=== PATIENT | male | born 1950 | race Caucasian/White ===

== ENCOUNTER 2023-04-10 14:31 | Outpatient (AMB) | payer MEDICARE, SELFPAY ==
[2023-04-10 14:48] VITALS: BP 114/70; PULSE 91; BMI 32.7
--- NOTE | 2023-04-10 14:48 | HO.NEPHOV ---
HPI HPI Comments History of Present Illness Details I had the pleasure of seeing Royce in follow-up for his hypertension. He was due to move to [place] last year but was delayed due to his left knee problems. He had worker's compensation sorted out for it and is going to be operated soon by [facility]. He has not been much active due to left knee issues and he has gained some weight. His blood pressure has been at goal. He has been taking metoprolol 50 mg twice daily. He does not have any orthostatic symptoms consistently. He denied chest pain, shortness of breath, paroxysmal nocturnal dyspnea, orthopnea, pedal edema or urinary symptoms. He does not take nonsteroidal anti-inflammatory medications on a regular basis. He tries to maintain himself well hydrated. He has not had any new medication changes recently. He was accompanied by his during this office visit who was physically present during the entire encounter. [facility] Medical History (Updated 04/11/23 @ 04:54 by Avtar Villafana MD) Spermatocele Varicocele Hydrocele Osteoarthritis Hypertension Surgical History (Updated 04/10/23 @ 14:56 by Lou Sims MA) S/P rotator cuff repair History of hernia repair History of arthroscopic knee surgery Family History (Updated 04/10/23 @ 14:58 by Lou Sims MA) Mother Diabetes Cancer Alzheimer disease Father Heart disease High cholesterol Brother Hx of CABG Social History (Updated 04/10/23 @ 14:57 by Lou Sims MA) Alcohol intake: never Patient Tobacco Use Status: Never used Tobacco Vital Signs 04/10/23 14:48 Height 5 ft 6 in Weight 202 lb 8 oz BMI 32.7 BP 114/70 Blood Pressure Location Lt brachial Position Sitting Pulse 91 Pulse Source Pulse Oximeter Physical Exam Vital Signs: Last Vital Signs Pulse 91 04/10/23 14:48 BP 114/70 04/10/23 14:48 BMI result Body Mass Index 32.7 Const General: comfortable and no acute distress Orientation/consciousness: patient oriented x3 HEENT Head: Yes normocephalic Mouth: Normal oral and palatal mucosa present Eyes EOM: EOMs intact bilaterally Neck Neck: Yes supple Resp Auscultation: clear to auscultation bilaterally Cardio Jugular venous distension: no JVD Rate: regular rate GI Palpation (GI): Soft to palpation Auscultation: normal bowel sounds General: Yes no CVA tenderness Back/Spine/Pelvis Back: no CVA tenderness Skin General skin exam: no rashes or lesions noted Neuro General: patient oriented x3 and moves all extremities Extrem General: Yes no pedal edema Assessment & Plan Assessment & Plan (1) Hypertension: Code(s): I10 - Essential (primary) hypertension Qualifiers: Hypertension type: primary hypertension Qualified Code(s): I10 - Essential (primary) hypertension Plan Royce has longstanding hypertension and is very well controlled on current medication regimen. He is compliant with his metoprolol 50 mg twice daily. He does not have any tachycardia, orthostatic symptoms. He denies taking nonsteroidal anti-inflammatory medications for his left knee issues. He tries to maintain a low-sodium diet. He has gained weight but is planning to lose after his left knee issues have been resolved. He tries to remain himself well hydrated. I did not make any medication changes today. All questions were answered. From a renal perspective, there is no reservation in him having his left knee operated. Follow-up blood work and urine studies ordered. Time spent during encounter, answering questions, retrieval of data & documentation 24 minutes. Orders: Orders Electrolytes 04/10/23 I10 - Essential (primary) hypertension Blood Urea Nitrogen 04/10/23 I10 - Essential (primary) hypertension Creatinine 04/10/23 I10 - Essential (primary) hypertension Calcium 04/10/23 I10 - Essential (primary) hypertension Medications: New metoprolol tartrate 50 mg PO BID 90 days 180 tabs 3RF Coding Level of Care Code Est Pt Level 3 (64931) Diagnoses Primary hypertension I10 Hypertension type: primary hypertension
== END 2023-04-10 15:50 | disposition home or self-care (01) ==
PROVIDERS: PCP Internal Medicine; Visit Provider Internal Medicine Nephrology
DX: I10 Essential (primary) hypertension (principal)
CPT/HCPCS: 99213

== ENCOUNTER → 2023-04-10 14:31 | Outpatient (BNVA) | payer MEDICARE, SELFPAY | PROVIDERS: PCP Internal Medicine; Visit Provider Internal Medicine Nephrology | DX: I10 Essential (primary) hypertension (principal) | CPT/HCPCS: 99212 ==

== ENCOUNTER 2023-10-09 14:43 | Outpatient (AMB) | payer MEDICARE, SELFPAY ==
[2023-10-09 15:13] VITALS: BP 110/84; PULSE 68; O2SAT 94; BMI 31.4
--- NOTE | 2023-10-09 15:13 | HO.NEPHOV ---
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 He was due to move to [place] last year but was delayed due to his left knee problems. He underwent left total knee replacement. He has been feeling tired and has occasional wheezing which his thinks could be due to metoprolol. His blood pressure has been at goal. He denied chest pain, shortness of breath, paroxysmal nocturnal dyspnea, orthopnea, pedal edema or urinary symptoms. He does not take nonsteroidal anti-inflammatory medications on a regular basis. He tries to maintain himself well hydrated. He has not had any new medication changes recently. He recently was diagnosed with renal stone. He sees Urology. He was accompanied by his during this office visit who was physically present during the entire encounter. [facility] Medical History (Updated 10/09/23 @ 15:38 by Avtar Villafana MD) Spermatocele Varicocele Hydrocele Osteoarthritis Hypertension Surgical History S/P rotator cuff repair History of hernia repair History of arthroscopic knee surgery Family History Mother Diabetes Cancer Alzheimer disease Father Heart disease High cholesterol Brother Hx of CABG Social History Alcohol intake: never Patient Tobacco Use Status: Never used Tobacco Physical Exam Vital Signs: Last Vital Signs Pulse 68 10/09/23 15:13 BP 110/84 10/09/23 15:13 Pulse Ox 94 10/09/23 15:13 Oxygen Delivery Method Room Air 10/09/23 15:13 BMI result Body Mass Index 31.4 Const General: comfortable and no acute distress Orientation/consciousness: patient oriented x3 HEENT Head: Yes normocephalic Mouth: Normal oral and palatal mucosa present Eyes EOM: EOMs intact bilaterally Neck Neck: Yes supple Resp Auscultation: clear to auscultation bilaterally Cardio Jugular venous distension: no JVD Rate: regular rate GI Palpation (GI): Soft to palpation Auscultation: normal bowel sounds General: Yes no CVA tenderness Back/Spine/Pelvis Back: no CVA tenderness Skin General skin exam: no rashes or lesions noted Neuro General: patient oriented x3 and moves all extremities Extrem General: Yes no pedal edema Results Reviewed Nephrology Results: No Data to Display Assessment & Plan Assessment & Plan (1) Hypertension: Code(s): I10 - Essential (primary) hypertension Category: Medical Qualifiers: Hypertension type: primary hypertension Qualified Code(s): I10 - Essential (primary) hypertension (2) Renal calculus: Code(s): N20.0 - Calculus of kidney Category: Medical Plan Royce has longstanding hypertension and is very well controlled on current medication regimen. He feels that he may be having wheezing and tiredness from metoprolol. He wants to change it and see whether his symptoms will go away. I D/Kavin metoprolol and sytarted on losartan 25 mg daily( side effects explained). ( was on metoprolol 50 mg twice daily). He does not have any tachycardia, orthostatic symptoms. He denies taking nonsteroidal anti-inflammatory medications for his left knee issues. He tries to maintain a low-sodium diet. He has gained weight but is planning to lose it. He tries to remain himself well hydrated. I did not make any medication changes today. I plan to do a 24 hour urine for stone screen later. All questions were answered. Follow-up blood work ordered. Orders: Orders Creatinine Today I10 - Essential (primary) hypertension, N20.0 - Calculus of kidney Blood Urea Nitrogen Today I10 - Essential (primary) hypertension, N20.0 - Calculus of kidney Electrolytes Today I10 - Essential (primary) hypertension, N20.0 - Calculus of kidney Medications: New losartan 25 mg PO DAILY 90 tabs 1RF Coding Level of Care Code Est Pt Level 4 (29160) Diagnoses Primary hypertension I10 Hypertension type: primary hypertension Renal calculus N20.0
== END 2023-10-09 15:48 | disposition home or self-care (01) ==
PROVIDERS: PCP Internal Medicine; Visit Provider Internal Medicine Nephrology
DX: I10 Essential (primary) hypertension (principal); N20.0 Calculus of kidney
CPT/HCPCS: 99214

== ENCOUNTER → 2023-10-09 14:43 | Outpatient (BNVA) | payer MEDICARE, SELFPAY | PROVIDERS: PCP Internal Medicine; Visit Provider Internal Medicine Nephrology | DX: I10 Essential (primary) hypertension (principal); N20.0 Calculus of kidney | CPT/HCPCS: 99212 ==

== ENCOUNTER 2024-01-08 13:35 | Outpatient (AMB) | payer MEDICARE, SELFPAY ==
[2024-01-08 13:39] VITALS: BP 120/82; PULSE 115; O2SAT 94; BMI 31.7
--- NOTE | 2024-01-08 13:39 | HO.NEPHOV ---
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 He was due to move to [place] last year but was delayed due to his left knee problems. He underwent left total knee replacement. He has been feeling tired and has occasional wheezing which his thinks could be due to metoprolol. His blood pressure has been at goal. He denied chest pain, shortness of breath, paroxysmal nocturnal dyspnea, orthopnea, pedal edema or urinary symptoms. He does not take nonsteroidal anti-inflammatory medications on a regular basis. He tries to maintain himself well hydrated. He has not had any new medication changes recently. He recently was diagnosed with renal stone. He sees Urology. He was accompanied by his during this office visit who was physically present during the entire encounter. He has been having high HR after changing metoprolol but his wheezing is gone. [facility] Medical History (Updated 10/09/23 @ 15:38 by Avtar Villafana MD) Spermatocele Varicocele Hydrocele Osteoarthritis Hypertension Surgical History S/P rotator cuff repair History of hernia repair History of arthroscopic knee surgery Family History Mother Diabetes Cancer Alzheimer disease Father Heart disease High cholesterol Brother Hx of CABG Social History Alcohol intake: never Patient Tobacco Use Status: Never used Tobacco Review of Systems Const All systems reviewed & are unremarkable except as noted in HPI and below Physical Exam Vital Signs: Last Vital Signs Pulse 115 H 01/08/24 13:39 BP 120/82 01/08/24 13:39 Pulse Ox 94 01/08/24 13:39 Oxygen Delivery Method Room Air 08/15/24 13:39 BMI result Body Mass Index 31.7 Const General: comfortable and no acute distress Orientation/consciousness: patient oriented x3 HEENT Head: Yes normocephalic Mouth: Normal oral and palatal mucosa present Eyes EOM: EOMs intact bilaterally Neck Neck: Yes supple Resp Auscultation: clear to auscultation bilaterally Cardio Jugular venous distension: no JVD Rate: regular rate GI Palpation (GI): Soft to palpation Auscultation: normal bowel sounds General: Yes no CVA tenderness Back/Spine/Pelvis Back: no CVA tenderness Skin General skin exam: no rashes or lesions noted Neuro General: patient oriented x3 and moves all extremities Extrem General: Yes no pedal edema Results Reviewed Nephrology Results: No Data to Display Assessment & Plan Assessment & Plan (1) Hypertension: Code(s): I10 - Essential (primary) hypertension Category: Medical Qualifiers: Hypertension type: primary hypertension Qualified Code(s): I10 - Essential (primary) hypertension (2) Renal calculus: Code(s): N20.0 - Calculus of kidney Category: Medical Plan Royce has longstanding hypertension and is very well controlled on current medication regimen but his HR is high after D/Cing metoprolol. (He felt that he may be having wheezing and tiredness from metoprolol. He wanted to change it and see whether his symptoms will go away. I D/Kavin metoprolol and started on losartan 25 mg daily at the last visit( side effects explained). ( was on metoprolol 50 mg twice daily) His wheezing is gone now. He denies taking nonsteroidal anti-inflammatory medications for his left knee issues. He tries to maintain a low-sodium diet. He is trying to lose weight. I asked him to hold losartan and started him on Diltiazem 240 mg daily. He tries to remain himself well hydrated. I did not make any other medication changes today. I plan to do a 24 hour urine for stone screen later. All questions were answered. Follow-up blood work ordered. Orders: Orders Creatinine Today I10 - Essential (primary) hypertension, N20.0 - Calculus of kidney Electrolytes Today I10 - Essential (primary) hypertension, N20.0 - Calculus of kidney Blood Urea Nitrogen Today I10 - Essential (primary) hypertension, N20.0 - Calculus of kidney Medications: New diltiazem HCl ER 240 mg PO DAILY 30 caps 2RF Coding Level of Care Code Est Pt Level 4 (19568) Diagnoses Primary hypertension I10 Hypertension type: primary hypertension Renal calculus N20.0
== END 2024-01-08 14:15 | disposition home or self-care (01) ==
PROVIDERS: PCP Internal Medicine; Visit Provider Internal Medicine Nephrology
DX: I10 Essential (primary) hypertension (principal); N20.0 Calculus of kidney
CPT/HCPCS: 99214

== ENCOUNTER → 2024-01-08 13:35 | Outpatient (BNVA) | payer MEDICARE, SELFPAY | PROVIDERS: PCP Internal Medicine; Visit Provider Internal Medicine Nephrology ==

== ENCOUNTER 2024-01-08 14:04 | Outpatient (REF) | payer MEDICARE, SELFPAY ==
[2024-01-08 17:52] LABS: Anion Gap 12 (12-20); Blood Urea Nitrogen 18 mg/dL (9-16); Carbon Dioxide 25 mmol/L (22-29); Chloride 108 mmol/L (96-108); Estimated Glomerular Filt Rate > 60; Potassium 4.1 mmol/L (3.3-5.1); Sodium 141 mmol/L (135-145)
== END 2024-01-08 14:05 | disposition home or self-care (01) ==
LOC: HO.HKASLDS 14:04
PROVIDERS: Visit Provider Internal Medicine Nephrology
DX: N20.0 Calculus of kidney (principal); I10 Essential (primary) hypertension
CPT/HCPCS: 36415; 80051; 82565; 84520; 99212

== ENCOUNTER 2024-02-24 14:32 | Outpatient (AMB) | payer MEDICARE, SELFPAY ==
--- NOTE | 2024-02-24 14:42 | HO.NEPHOV_ITS ---
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 He underwent left total knee replacement. His blood pressure has been at goal. He denied chest pain, shortness of breath, paroxysmal nocturnal dyspnea, orthopnea, pedal edema or urinary symptoms but has been having intermittent tachycardia. He does not take nonsteroidal anti-inflammatory medications on a regular basis. He tries to maintain himself well hydrated. He recently was diagnosed with renal stone. He sees Urology. He was accompanied by his during this office visit who was physically present during the entire encounter. [facility] Medical History (Updated 10/09/23 @ 15:38 by Avtar Villafana MD) Spermatocele Varicocele Hydrocele Osteoarthritis Hypertension Surgical History S/P rotator cuff repair History of hernia repair History of arthroscopic knee surgery Family History Mother Diabetes Cancer Alzheimer disease Father Heart disease High cholesterol Brother Hx of CABG Social History Alcohol intake: never Patient Tobacco Use Status: Never used Tobacco Review of Systems Const All systems reviewed & are unremarkable except as noted in HPI and below Physical Exam Vital Signs: Last Vital Signs Pulse 105 H 02/24/24 14:44 BP 122/86 02/24/24 14:44 Pulse Ox 95 02/24/24 14:44 Oxygen Delivery Method Room Air 02/24/24 14:44 BMI result Body Mass Index 32.1 Const General: comfortable and no acute distress Orientation/consciousness: patient oriented x3 HEENT Head: Yes normocephalic Mouth: Normal oral and palatal mucosa present Eyes EOM: EOMs intact bilaterally Neck Neck: Yes supple Resp Auscultation: clear to auscultation bilaterally Cardio Jugular venous distension: no JVD Rate: regular rate GI Palpation (GI): Soft to palpation Auscultation: normal bowel sounds General: Yes no CVA tenderness Back/Spine/Pelvis Back: no CVA tenderness Skin General skin exam: no rashes or lesions noted Neuro General: patient oriented x3 and moves all extremities Extrem General: Yes no pedal edema Results Reviewed Nephrology Results: Sodium 141 mmol/L (135-145) 01/08/24 Potassium 4.1 mmol/L (3.3-5.1) 01/08/24 Chloride 108 mmol/L (96-108) 01/08/24 Carbon Dioxide 25 mmol/L (22-29) 01/08/24 BUN 18 mg/dL (9-16) H 01/08/24 Creatinine 0.93 mg/dL (0.5-1.4) 01/08/24 Assessment & Plan Assessment & Plan (1) Hypertension: Code(s): I10 - Essential (primary) hypertension Category: Medical Qualifiers: Hypertension type: primary hypertension Qualified Code(s): I10 - Essential (primary) hypertension (2) Renal calculus: Code(s): N20.0 - Calculus of kidney Category: Medical Plan Royce has longstanding hypertension and is very well controlled on current medication regimen but his HR is high after D/Cing metoprolol. (He felt that he may be having wheezing and tiredness from metoprolol). He is on losartan 25 mg daily along with Diltiazem. ( was on metoprolol 50 mg twice daily) His wheezing is gone now. He denies taking nonsteroidal anti-inflammatory medications for his left knee issues. He tries to maintain a low-sodium diet. He is trying to lose weight. We may have to hold losartan and increase Diltiazem to 360 mg daily, after a monitor. He tries to remain himself well hydrated. I did not make any other medication changes today. I plan to do a 24 hour urine for stone screen later. All questions were answered. Follow-up blood work ordered Coding Level of Care Code Est Pt Level 4 (47012) Diagnoses Primary hypertension I10 Hypertension type: primary hypertension Renal calculus N20.0
[2024-02-24 14:44] VITALS: BP 122/86; PULSE 105; O2SAT 95; BMI 32.1
== END 2024-02-24 15:09 | disposition home or self-care (01) ==
PROVIDERS: PCP Internal Medicine; Visit Provider Internal Medicine Nephrology
DX: I10 Essential (primary) hypertension (principal); N20.0 Calculus of kidney
CPT/HCPCS: 99214

== ENCOUNTER → 2024-02-24 14:32 | Outpatient (BNVA) | payer MEDICARE, SELFPAY | PROVIDERS: PCP Internal Medicine; Visit Provider Internal Medicine Nephrology | DX: I10 Essential (primary) hypertension (principal); N20.0 Calculus of kidney | CPT/HCPCS: 99212 ==

== ENCOUNTER 2024-08-24 13:55 | Outpatient (AMB) | payer MEDICARE, SELFPAY ==
--- NOTE | 2024-08-24 14:01 | HO.NEPHOV_ITS ---
Vital Signs 08/24/24 14:02 Height 5 ft 6 in Weight 199 lb BMI 32.1 BP 124/80 Blood Pressure Location Lt brachial Position Sitting Pulse 106 H Pulse Source Pulse Oximeter Pulse Oximetry (%) 96 Oxygen Delivery Method Room Air Intake Visit Reasons: 6 mo follow up-[facility] [place] Required: No Accompanied by: Self / Same As Patient Allergies atorvastatin [From Lipitor] Allergy (Verified 08/24/24 14:01) Unknown calamine Allergy (Verified 08/24/24 14:01) Unknown HPI Comments Details: I had the pleasure of seeing Royce in follow-up for his hypertension. He has a prostate biopsy coming up soon. His blood pressure has been at goal. He denied chest pain, shortness of breath, paroxysmal nocturnal dyspnea, orthopnea, pedal edema or urinary symptoms but has been having intermittent tachycardia. He does not take nonsteroidal anti-inflammatory medications on a regular basis. He tries to maintain himself well hydrated. He did not have any new issues with renal stone. He sees Urology. . [facility] Medical History (Updated 10/09/23 @ 15:38 by Avtar Villafana MD) Spermatocele Varicocele Hydrocele Osteoarthritis Hypertension Surgical History S/P rotator cuff repair History of hernia repair History of arthroscopic knee surgery Family History Mother Diabetes Cancer Alzheimer disease Father Heart disease High cholesterol Brother Hx of CABG Social History Alcohol intake: never Patient Tobacco Use Status: Never used Tobacco Review of Systems Const All systems reviewed & are unremarkable except as noted in HPI and below Physical Exam Vital Signs: Last Vital Signs Pulse 106 H 08/24/24 14:02 BP 124/80 08/24/24 14:02 Pulse Ox 96 08/24/24 14:02 Oxygen Delivery Method Room Air 08/24/24 14:02 BMI result Body Mass Index 32.1 Const General: comfortable and no acute distress Orientation/consciousness: patient oriented x3 HEENT Head: Yes normocephalic Mouth: Normal oral and palatal mucosa present Eyes EOM: EOMs intact bilaterally Neck Neck: Yes supple Resp Auscultation: clear to auscultation bilaterally Cardio Jugular venous distension: no JVD Rate: regular rate GI Palpation (GI): Soft to palpation Auscultation: normal bowel sounds Skin General skin exam: no rashes or lesions noted Neuro General: patient oriented x3 and moves all extremities Extrem General: Yes no pedal edema Results Reviewed Nephrology Results: Sodium 141 mmol/L (135-145) 01/08/24 Potassium 4.1 mmol/L (3.3-5.1) 01/08/24 Chloride 108 mmol/L (96-108) 01/08/24 Carbon Dioxide 25 mmol/L (22-29) 01/08/24 BUN 18 mg/dL (9-16) H 01/08/24 Creatinine 0.93 mg/dL (0.5-1.4) 01/08/24 Assessment & Plan Assessment & Plan (1) Hypertension: Code(s): I10 - Essential (primary) hypertension Category: Medical Qualifiers: Hypertension type: primary hypertension Qualified Code(s): I10 - Essential (primary) hypertension (2) Renal calculus: Code(s): N20.0 - Calculus of kidney Category: Medical Plan Royce has longstanding hypertension and is very well controlled on current medication regimen but his HR is high after D/Cing metoprolol. (He felt that he may be having wheezing and tiredness from metoprolol). He is on losartan 25 mg daily along with Diltiazem. ( was on metoprolol 50 mg twice daily) His wheezing is gone now. He denies taking nonsteroidal anti-inflammatory medications for his left knee issues. He tries to maintain a low-sodium diet. He is trying to lose weight. He tries to remain himself well hydrated. I did not make any other medication changes today. I plan to do a 24 hour urine for stone screen later. All questions were answered. Follow-up blood work ordered Orders: Orders Electrolytes 6 Months I10 - Essential (primary) hypertension, N20.0 - Calculus of kidney Blood Urea Nitrogen 6 Months I10 - Essential (primary) hypertension, N20.0 - Calculus of kidney Creatinine 6 Months I10 - Essential (primary) hypertension, N20.0 - Calculus of kidney Medications: Refilled diltiazem HCl ER (Tiadylt ER) 240 mg PO DAILY 90 caps 4RF Coding Level of Care Code Est Pt Level 4 (79161) Diagnoses Primary hypertension I10 Hypertension type: primary hypertension Renal calculus N20.0
[2024-08-24 14:02] VITALS: BP 124/80; PULSE 106; O2SAT 96; BMI 32.1
--- OUTSIDE RECORDS SUMMARY | 2024-08-24 16:35 | XMS_ITS | Clinical Summary ---
Author Organization [facility] Address [address] [place] [address] Phone Care Team Providers Care Consumer Lending Manager Name Role Phone Tripp Montano MD Primary Care Provider [phone] Allergies Active Allergy Reactions Criticality Noted Date Comments Atorvastatin Other 05/07/2006 Other Reaction(s): PAIN SYNDROME Pain syndrome Calamine Other,Rash High 01/19/2009 Other Reaction(s): rash/.hives Medications sertraline (ZOLOFT) 100 mg tablet Total 150 mg daily 1 Active losartan (COZAAR) 25 mg tablet 1 (one) time each day. 4 Active ezetimibe (ZETIA) 10 mg tablet Take 1 tablet (10 mg total) by mouth 1 (one) time each day. 4 Active ketoconazole (NIZORAL) 2 % cream 3 Active omeprazole (PriLOSEC) [address] capsule Take 1 capsule (20 mg total) by mouth 1 (one) time each day. 2 Active methylphenidate (RITALIN) 10 mg tablet Three Times A Day 1 Active cetirizine (ZyrTEC) 10 mg tablet Take 1 tablet (10 mg total) by mouth. 0 Active fluticasone propionate (FLONASE) 50 mcg/actuation nasal spray Administer 2 sprays into affected nostril(s). 7 Active aspirin 81 mg EC tablet Take 1 tablet (81 mg total) by mouth. Active MULTIVITAMIN ORAL Take 1 tablet by mouth 1 (one) time each day. Active dilTIAZem (Tiadylt ER) 240 mg 24 hr capsule Take 1 capsule (240 mg total) by mouth 1 (one) time each day. 4 Active magnesium 250 mg tablet Active cholecalciferol (VITAMIN D-3) 50 mcg (2,000 unit) tablet Take 1 tablet (2,000 Units total) by mouth 1 (one) time each day. Active sertraline (ZOLOFT) 50 mg tablet Take 1 tablet (50 mg total) by mouth 1 (one) time each day. Total of 150 mg daily Active inulin (PREBIOTIC FIBER ORAL) Take by mouth 3 (three) times a day. Active rosuvastatin (CRESTOR) 40 mg tablet Take 0.5 tablets (20 mg total) by mouth 1 (one) time each day. 45 tablet 1 4 Active cholestyramine (QUESTRAN) 4 gram powder Take 1 packet (4 g total) by mouth 2 (two) times a day with meals. Dissolve in 8 oz of liquid and drink before a meal 60 packet 3 5 07/06/19 26 Active Active Problems Problem Noted Date Diagnosed Date Family history of malignant melanoma of skin Overview (02/11/2024): Family history of malignant melanoma of skin father Class 1 obesity 02/09/2024 Moderate asthma without complication 09/29/2023 Fatigue 12/17/2022 Dyspnea 11/18/2022 History of COVID-19 08/08/2022 Overview (02/09/2024): Home test 08/07/22 Gastroesophageal reflux dise ase with esophagitis without hemorrhage 10/18/2020 Aortic aneurysm 07/18/2019 Overview (02/09/2024): ECHO 09/2022: 3.9 cm Infrarenal; MRI May, 2019; 3.1 cm Last Assessment & Plan: Mild aortic enlargement by echocardiogram. He is a non-smoker and has no evidence of connective tissue disease. I would continue with a healthy diet and lipid- lowering. We will get an echocardiogram in 1 to 2 years to follow-up on the aortic size as well as abdominal aortic assessment for a mildly enlarged infrarenal aorta. Frequent headaches 04/13/2018 Hypertension 09/20/2017 Overview (02/09/2024): Renal (12/29/17): Seen for hypertension, tachycardia. His 24-hour blood pressure monitor showed uncontrolled blood pressures. His metoprolol was increased to 37.5 mg twice a day. He needs to see a EP physician. Metanephrines ordered. Labs: normetanephrine plasma = 249 (abdnormal), total metanephrine 296 (Abnormal), metanephrine = 47 Renal (08/07/17): 24bp monitoring ordered. Low sodium/dash diet. Assessment & Plan (06/18/2024 5:51 PM EST): Follow low-sodium diet. Continue current regimen of diltiazem. Microhematuria 04/20/2017 Overview (02/09/2024): Urology(04/11/17): prior CT showed no pathology, cysto 2012 negative, cytology negative, no gross heme, no longer seen blood in urine. Recent PSA 0.9, GIOVANNY WNL, f/u in 1 year. 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 I am reassured by the negative nuclear study I let her know that despite no means suggest he does not have any coronary disease. I am concerned with the increase in the LDL cholesterol and I will add Zetia to his regimen and recheck in 6 to 2 weeks. I encouraged him to continue a healthy diet. His dyspnea a few months ago was likely post COVID- related not due to current myocarditis based on the echocardiogram or stress test. All his RV function was slightly reduced he does not appear to have a RV cardiomyopathy by EKG or imaging. I would continue to monitor clinically as long as he continues to improve. Assessment & Plan (06/18/2024 5:51 PM EST): Follow low-cholesterol diet. Continue current treatment of ezetimibe. Encounters Date Type Department Care Team Description 08/02/2024 Telephone Internal Medicine - [address] [phone] Ángela Walker MA Results (Lmtcb . Please transfer call to ext : [phone] thanks. ANIL FREIRE) 07/06/2024 1:20 PM EST Office Visit Gastroenterology - [place] [address] [facility] [address] [place] [phone] Ariana Grimaldo PA Irritable bowel syndrome, unspecified type (Primary Dx); Loose stools 07/04/2024 Telephone Internal Medicine - [address] [phone] Tripp Montano MD 06/22/2024 Telephone Timber Repairer - [address] [phone] Fouzia Perez MA Medicare Annual Wellness Visit Subsequent (AWV DUE after 06/09/2024) 06/18/2024 2:45 PM EST Office Visit Internal Medicine - [address] [phone] Tripp Montano MD Elevated PSA (Primary Dx); Ascending aorta dilatation (CMS/HCC); Hyperlipidemia, unspecified hyperlipidemia type; Hypertension, unspecified type; Lymphadenopathy, inguinal from Last 3 Months Immunizations Name Administration Dates Next Due Influenza Quadravalent, 0.5m l (Fluzone High-dose) 65yo and older 03/09/2023,03/13/2022 Influenza Quadravalent, MDCK , 0.5ml, with preservative (Flucelvax) 6mo and older 04/09/2017 Influenza trivalent, 0.5mL ( Fluzone High-dose) 65yo and older 05/14/2021,03/23/2020,03/16/2019,02/18 Influenza trivalent, with pr eservative (Fluzone; Afluria) 6mo and older 01/27/2024,03/01/2015,03/23/2014,05/15,06/24/2011,02/26/2010,03/15/2008 ,05/07/2006 Influenza, Unspecified 03/07/2023 Moderna SARS-CoV-2 COVID-19, mRNA, LNP-S, preservative free 08/28/2020,07/30/2020 Pfizer SARS-CoV-2 COVID-19, mRNA, LNP-S, preservative free 01/27/2024,03/07/2023,08/31/2021,04/05 Pneumococcal conjugate 13 va lent (Prevnar 13, PCV13) 2mo and older 04/09/2017 Pneumococcal polysaccharide 23 valent (Pneumovax 23) 2yo and older 10/20/2020 RSV, bivalent, protein subun it RSVpreF, 0.5mL, Preservative Free (Arexvy) 60yo and older 05/31/2023 Td Tetanus diptheria (Tdvax) 7yo and older 03/16/2019 Tdap Tetanus diptheria acell ular pertussis (Boostrix; Adacel) 7yo and older 03/15/2008 Zoster Live 12/16/2014 Zoster recombinant (Shingrix ) 19yo and older 11/22/2021,08/31/2021 Surgical History Surgery Date Site/Laterality Comments OTHER SURGICAL HISTORY 03/31 PROCEDURE: PSA, TOTAL SCREENING; COMMENT: 1.1 KNEE ARTHROSCOPY W/ DEBRIDEMENT PROCEDURE: IL ARTHRS KNEE DEBRIDEMENT/SHAVING ARTCLR CRTLG; COMMENT: bilat arthroscopy HERNIA REPAIR PROCEDURE: HISTORICAL HERNIA REPAIR/ING; COMMENT: Right COLONOSCOPY 07/27 PROCEDURE: HISTORICAL COLONOSCOPY; COMMENT: Harman; aniceto OTHER SURGICAL HISTORY 10/11/13 PROCEDURE: COLON CA SCRN NOT HI RSK IND; COMMENT: ticguy; repeat in 10 yrs OTHER SURGICAL HISTORY 09/2013 Right PROCEDURE: IL OPEN REPAIR OF ROTATOR CUFF ACUTE OTHER SURGICAL HISTORY 09/2018 PROCEDURE: IL LIGATION/BIOPSY TEMPORAL ARTERY; COMMENT: negative Medical History Medical History Date Comments Other and unspecified hyperlipidemia 04/03/2006 DX:Other and unspecified hyperlipidemia ADD (attention deficit disorder) 03/15/2008 DX:ADD (attention deficit disorder) Family history of malignant melanoma of skin DX:Family history of maligna nt melanoma of skin; COMMENT: Family history of malignant melanoma of skin father Moderate asthma without complication 09/29/2023 DX:Moderate asthma without complication Family History Medical History Relation Name Comments CABG Brother quadruple CABG Father triple Heart attack Father Lung cancer Father DM? Melanoma Father Diabetes Mother Other: Dementia Mother Relation Name Status Comments Brother Father Mother Social History Tobacco Use Types Packs/Day Years Used Date Smoking Tobacco: Never Smokeless Tobacco: Never Tobacco Cessation:Counseling Given: Not Answered Alcohol Use Standard Drinks/Week Comments Yes 0 (1 standard drink = 0.6 oz pur e alcohol) Housing Instability Answer Date Recorde d Are you worried that in the next 2 months you may not have stable housing? No 06/11/2024 Food Access & Nutrition Answer Date Rec orded Do you have access to a vari ety of food including fruits and vegetables? Yes 06/11/2024 Access to Healthcare Answer Date Record ed Within the last 3 months, ho w many times did you visit the emergency department for your medical care? 0 06/11/2024 Health Literacy Answer Date Recorded How often do you need to hav e someone help you when you read instructions, pamphlets, or other written material from your doctor or pharmacy? Rarely 06/11/2024 Caregiver: How often do you need to have someone help you when you read instructions, pamphlets, or other written material from your doctor or pharmacy? Not on file 06/11/2024 Financial Risk Answer Date Recorded How hard is it for you to pa y for the very basics like food, housing, medical care, and air conditioning / heating? Not very hard 06/11/2024 Transportation Answer Date Recorded Has the lack of transportati on kept you from meetings, work, or from getting things needed for daily living? No Has the lack of transportati on kept you from medical appointments or from getting medications? No 06/11/2024 Social Isolation Answer Date Recorded How often do you feel lonely or isolated from th ose around you? Never 06/11/2024 Food Risk Answer Date Recorded Within the past 12 months we worried whether our food would run out before we got money to buy more. Unable to respond 025 Within the past 12 months th e food we bought just didn't last and we didn't have money to get more. Never true 05/26 Dependent Care Answer Date Recorded Do you need help finding or paying for care for your loved ones. For example, early childhood teacher or elderly care for an older adult? No 06/11/2024 Education Answer Date Recorded Do you think completing more education or training, like finishing a GED, going to college, or learning a trade, would be helpful for you? Yes 06/11/2024 Employment and Income Answer Date Recor ded During the last four weeks, have you been actively looking for work? No 06/11/2024 Living Situation Answer Date Recorded What is your living situation? 0 06/11/2024 Sex and Gender Information Value Date Recorded Sex Assigned at Male 04/04/2024 8:17 PM EST Legal Sex Male 9:31 AM EST Gender Identity Male 04/04/2024 8:17 PM EST Sexual Orientation Straight 04/04/2024 8: 17 PM EST Obstetrics History Last Filed Vital Signs Vital Sign Reading Time Taken Comments Blood Pressure 120/62 06/18/2024 2:41 PM EST Pulse 96 06/18/2024 2:41 PM EST Temperature - - Respiratory Rate - - Oxygen Saturation 96% 08/02/2022 6:3 6 PM EST Walking O2 Inhaled Oxygen Concentration - - Weight 90.6 kg (199 lb 12.8 oz) 025 1:19 PM EST Height 167.6 cm (5' 6 ) 07/06/2024 1:19 PM EST Body Mass Index 32.25 07/06/2024 1:19 PM EST Plan of Treatment Upcoming Encounters Date Type Department Care Team (Late st Contact Info) Description 08/31/2024 1:00 PM EDT Office Visit Pulmonolgy - [place] [address] [facility] [address] [place] [phone] Susana Posada MD [address] [phone] 09/07/2024 2:[address] [facility] Ultrasound [address] [place] [phone] 09/24/2024 11:30 AM EDT Ancillary Procedure [facility] [address] [facility] [address] [place] [address] 10/06/2024 1:00 PM EDT Office Visit Vascular Surgery - [place] [address] [place] [phone] Renetta Man MD [address] [place] [address] 10/28/2024 2:15 PM EDT Office Visit Internal Medicine - [facility] [address] [place] [phone] Tripp Montano MD [address] [place] [address] Health Maintenance Due Date Last Done Comments Hepatitis A Vaccines (1 of 2 - Risk 2-dose series) 1970 Hepatitis B Vaccines (1 of 3 - Risk 3-dose series) 2011 Medicare Annual Wellness Visit 05/04/2022 COVID-19 Vaccine ( season) 2024 01/27/2024, 03/09/2023, 03/07/2023, Additional history exists Hypertension/CHF/CAD Annual BMP Blood Test 01/29/2025 01/30/2024, 01/30/2024 Depression Screening 06/11/2025 06/11/2024, 06/09/2023, 06/09/2023 Social Influencers of Health Screening 06/11/2025 06/11/2024 Falls Risk Assessment 06/18/2025 06/18/2024, 024 Cholesterol Screening (Lipid Panel) 11/18/2028 11/19/2023, 11/19/2023, 09/30/2023 DTaP,Tdap,and Td Vaccines (3 - Td or Tdap) 03/16/2029 03/16/2019, 03/15/2008 Colorectal Cancer Screening: Colonoscopy 10/21/2033 10/22/2023 Pneumococcal Vaccine: 50+ Years Completed 10/20/2020, 04/09/2017 Zoster Vaccines Completed 11/22/2021, 04/0 12/2021, 12/16/2014 RSV Immunization Patients 60+ Years Old Completed 05/31/2023 Hepatitis C Screening Completed 09/30/2023, 014 Influenza Vaccine Completed 01/27/2024, , 03/07/2023, Additional history exists HIB Vaccines Aged Out No longer eligi ble based on patient's age to complete this topic HPV Vaccines Aged Out No longer eligi ble based on patient's age to complete this topic IPV Vaccines Aged Out No longer eligi ble based on patient's age to complete this topic MMR Vaccines Aged Out No longer eligi ble based on patient's age to complete this topic Meningococcal ACWY Vaccine Aged Out N o longer eligible based on patient's age to complete this topic Meningococcal B Vacine Aged Out No lo nger eligible based on patient's age to complete this topic RSV Immunization Patients Under 20 months Aged Out No longer eligible based on patient's age to complete this topic Varicella Vaccines Aged Out No longer eligible based on patient's age to complete this topic Procedures Procedure Name Priority Date/Time Associated Diagnosis Comments CBC WITH AUTO DIFFERENTIAL Routine 07/20/2024 3:18 PM EST Anemia, unspecified type CBC AND DIFFERENTIAL Routine 07/20/2024 3:18 PM EST Anemia, unspecified type CBC WITH AUTO DIFFERENTIAL Routine 06/18/2024 3:48 PM EST Iron deficiency anemia, unspecified iron deficiency anemia type CBC AND DIFFERENTIAL Routine 06/18/2024 3:48 PM EST Iron deficiency anemia, unspecified iron deficiency anemia type PROSTATE SPECIFIC ANTIGEN DIAGNOSTIC Routine 06/18/2024 3:48 PM EST Elevated prostate specific antigen (PSA) IRON Routine 06/18/2024 3:48 PM EST Iron deficiency anemia, unspecified iron deficiency anemia type ANNUAL BMP BLOOD TEST Routine 01/30/2024 LIPID PANEL Routine 11/19/2023 COLONOSCOPY Routine 10/22/2023 HEPATITIS C SCREENING Routine 09/30/2023 DEPRESSION SCREENING Routine 06/09/2023 from Last 3 Months or Most Recently Relevant to Health Maintenance Results * (ABNORMAL) CBC auto differential (07/20/2024 3:18 PM EST) Only the most recent of2 resultswithin the time period is included. WBC 5.4 4.8 - 10.8 K/mcL LAB HEMETOLOGY METHOD 07/20/2024 6:17 PM [facility] RBC 4.10(L) 4.50 - 5.50 M/mcL LAB HEMETOLOGY METHOD 07/20/2024 6:17 PM [facility] Hemoglobin 13.4(L) 13.5 - 17.5 g/dL LAB HEMETOLOGY METHOD 07/20/2024 6:17 PM [facility] Hematocrit 40.4(L) 42.0 - 54.0 % LAB HEMETOLOGY METHOD 07/20/2024 6:17 PM [facility] MCV 98.8(H) 79.0 - 98.0 FL LAB HEMETOLOGY METHOD 07/20/2024 6:17 PM [facility] MCH 32.8(H) 27.0 - 32.0 pcg LAB HEMETOLOGY METHOD 07/20/2024 6:17 PM [facility] MCHC 33.2 32.0 - 37.0 g/dL LAB HEMETOLOGY METHOD 07/20/2024 6:17 PM [facility] RDW 13.3 11.0 - 15.0 % LAB HEMETOLOGY METHOD 07/20/2024 6:17 PM [facility] Platelets 206 130 - 400 K/mcL LAB HEMETOLOGY METHOD 07/20/2024 6:17 PM [facility] MPV 10.6 7.0 - 11.0 FL LAB HEMETOLOGY METHOD 07/20/2024 6:17 PM [facility] NRBC 0.0 <1.0 % LAB HEMETOLOGY METHOD 07/20/2024 6:17 PM [facility] NRBC Absolute 0.00 <0.10 K/mcL LAB HEMETOLOGY METHOD 07/20/2024 6:17 PM [facility] Neutrophils Relative 68.6 % LAB HEMETOLOGY METHOD 07/20/2024 6:17 PM [facility] Lymphocytes Relative 17.9 % LAB HEMETOLOGY METHOD 07/20/2024 6:17 PM [facility] Monocytes Relative 10.8 % LAB HEMETOLOGY METHOD 07/20/2024 6:17 PM [facility] Eosinophils Relative 1.7 % LAB HEMETOLOGY METHOD 07/20/2024 6:17 PM [facility] Basophils Relative 0.6 % LAB HEMETOLOGY METHOD 07/20/2024 6:17 PM [facility] Immature Granulocytes Relative 0.4 % LAB HEMETOLOGY METHOD 07/20/2024 6:17 PM [facility] Neutrophils Absolute 3.69 1.50 - 7.00 K/mcL LAB HEMETOLOGY METHOD 07/20/2024 6:17 PM [facility] Lymphocytes Absolute 0.96(L) 1.00 - 5.00 K/mcL LAB HEMETOLOGY METHOD 07/20/2024 6:17 PM [facility] Monocytes Absolute 0.58 0.20 - 1.00 K/mcL LAB HEMETOLOGY METHOD 07/20/2024 6:[address] [facility] Eosinophils Absolute 0.09 0.00 - 0.50 K/mcL LAB HEMETOLOGY METHOD 07/20/2024 6:[address] [facility] Basophils Absolute 0.03 0.00 - 0.20 K/mcL LAB HEMETOLOGY METHOD 07/20/2024 6:[address] [facility] Immature Granulocytes Absolute 0.02 0.00 - 0.03 K/[facility] LAB HEMETOLOGY METHOD 07/20/2024 6:[address] [facility] Blood Venous blood specimen / Unknown Venipuncture / Unknown 07/20/2024 3:18 PM EST 07/20/2024 3:18 PM EST Tripp Montano MD LAB BLOOD ORDERABLES Marta reyez Result Performing Organization Address City/[facility]/ZIP Co de Phone Number [facility] [address] [place] [address], [place] [phone] * (ABNORMAL) Prostate specific antigen diagnostic (06/18/2024 3:48 PM EST) PSA 22.39(H) 0.00 - 4.00 ng/mL LAB CHEMISTRY METHOD 06/18/2024 9:[address] [facility] Blood Venous blood specimen / Unknown Venipuncture / Unknown 06/18/2024 3:48 PM EST 06/18/2024 3:[address] [facility] - 06/18/2024 9:04 PM EST The Siemens Advia Centaur Chemiluminescent Immunoassay is used. Results obtained with different assay methods or kits cannot be used interchangeably. Results cannot be interpreted as absolute evidence of the presence or absence of malignant disease. us Khalif Mendoza MD LAB BLOOD ORDERABLES Final Resul t [facility] [address] [place] [address], [place] [phone] * Iron (06/18/2024 3:48 PM EST) [facility] Iron 124 50 - 160 mcg/dL LAB CHEMISTRY METHOD 06/18/2024 8:[address] [facility] Comment:Hemolysis present Blood Venous blood specimen / Unknown Venipuncture / Unknown 06/18/2024 3:48 PM EST 06/18/2024 3:48 PM EST Tripp Montano MD LAB BLOOD ORDERABLES Marta l Result [facility] [address] [place] [address], [place] [phone] * Annual BMP Blood Test (01/30/2024) [facility] Annual BMP Blood Test abstracted [facility] Provider HEALTH MAINTENANCE Final Result * Lipid panel (11/19/2023) [facility] LDL/HDL Ratio 3 Triglycerides 126 mg/dL Cholesterol 174 mg/dL HDL 54 mg/dL LDL Cholesterol 95 mg/dL Blood Venous blood specimen / Unknown [facility] Naren MALONE LAB BLOOD ORDERABLES Marta l Result * Colonoscopy (10/22/2023) [facility] Colonoscopy completed Anatomical Region Laterality Modality Other [facility] Provider HEALTH MAINTENANCE Final Result * Hepatitis C Screening (09/30/2023) [facility] Hepatitis C Screening abstracted [facility] Naren MAOLNE HEALTH MAINTENANCE Final Result * Depression Screening (06/09/2023) [facility] Depression Screening abstracted [facility] Naren MALONE HEALTH MAINTENANCE Final Result from Last 3 Months or Most Recently Relevant to Health Maintenance Insurance MEDICARE [facility] MEDEX Care Teams Consumer Lending Manager Relationship Specialty Start Date End Date Tripp Montano MD [address] [place] [id number] PCP - General Internal Medicine 04/09/17
--- OUTSIDE RECORDS SUMMARY | 2024-08-24 16:35 | XMS_ITS | Data Portability ---
Author Organization [place] - [facility], Allergy Address [address] [place] [phone] Care Team Providers Care Courtroom Deputy Or Calendar Clerk Name Role Phone JACOB ANA Primary Care Provider Assessment Encounter Date Assessment Date Assessment LastModified by Organization Details LastModified Time 04/07/2024 04/07/2024 Recommendations: Follow up with referring provider. Amplification, pending medical clearance and pt motivation. [email or web address] Not available 04/07/2024 14:29:42 04/07/2024 04/07/2024 74-year-old male presents for cerumen removal and hearing test. Cerumen densely impacted in the right ear removed without difficulty. Cerumen impaction also removed from left side. TMs normal to inspection. Audiometric testing obtained today. Results show sloping sensorineural hearing loss bilaterally which is symmetrical. Normal tympanogram bilaterally. He would be an excellent candidate for amplification. He was provided a copy of his hearing test along with medical clearance. Hearing aid evaluation scheduled as well. Follow-up in 6 months for cerumen removal. [email or web address] Not available 04/07/2024 15:24:07 Plan of Treatment Reminders Order Date Submit Date Provider Last Modified By Organization Details Last Modified Time Details Appointments Establish ed 15 2024 01:00P M AYAH KAUR PA-C Not available Not available Not available Lab None recorded. Referral None recorded. Procedures None recorded. Surgeries None recorded. Imaging None recorded. Medication Orders None recorded. Patient TargetsNo targets recorded. Patient InstructionsNo instructions recorded. Reason for Referral None Reported. Results Created Date Observation Date Name Description Value Unit Range Abnormal Flag Note LastModifiedBy Organization Detail LastModifiedTime 04/08/20 24 audio gram No observ ation record ed. BARCODE Not Available 2023 10:43:30 Result Notes None recorded. 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 816557315 Active 2017 Coagulati on defects: Other hemorrhag ic disorder due to intrinsic circulati ng anticoagu lants, antibodie s, or inhibitor s; Note: Date Diagnosed : 03/01/2015 8:41 AM () Not Available Count includes the [facility] 4 03:13:33 Essential hypertens ion 45690908 Active 2017 Essential (primary) hypertens ion; Note: Date Diagnosed : 07/03/2017 4:30 PM (I10) Not Available Count includes the [facility] 4 03:13:34 Bleeding from nose 160317297 Active 2017 Epistaxis ; Note: Date Diagnosed : 07/03/2017 4:04 PM (R04.0) Not Available Count includes the [facility] 4 03:13:33 Epistaxis Active 2017 Epistaxis ; Note: Date Diagnosed : 03/01/2015 8:41 AM () Not Available Count includes the [facility] 4 03:13:33 Long-term current use of antiplate let drug 57491810223 4101 Active 2017 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 4 14:19:47 Sensorine ural hearing loss of bilateral ears 955019598 Active 2023 YURIDIA STONEJESSICA, AUD [address] [facility],[place] [address], [place], [address] , [facility] 14:23:59 Problem Notes None recorded. Procedures Surgical History Date Name Laterality Status Provider Name and Address Organization Details Recorded Time 4 Comp Audio with Tymps (40985 & 29201) completed YURIDIA SCANLON, AJAY [address] [facility],[place] [address], [place], [address], [facility] 04/07/2024 14:23:53 4 Cerumen removal without microscope bilat completed AYAH KAUR PA-C [address] [facility],[place] [address], [place], [address], [facility] 04/07/2024 14:19:17 Imaging Results Imaging Date Name Status LastModified by Organiz ation Details LastModified Time 04/08/2024 audiogram completed BARCODE Information no t available 04/08/2024 10:43:30 Procedure Notes None recorded. Medical Equipment None Reported. Allergies Allergen ID Allergen Name Allergen Category Reaction Reaction Severity Criticality Documentation Date Start Date Code Code System Note Provider Name and Address Organization Details Recorded Time 703516 Lipitor medicatio n other Not available Not available 10/07/2023 42701 5 RxNorm React ion: unkno wn, unspe cifie d;; Not Available Count includes the [facility] 4 01:15:52 589612 calamine medicatio n other Not available Not available 10/07/2023 64983 2 RxNorm React ion: unkno wn, unspe cifie d;; Not Available Count includes the [facility] 4 01:15:54 Medications Name Sig Start Date Stop Date Status Note LastModified by Organization Details LastModified Time celecoxib 200 mg capsule TAKE 1 CAPSULE EVERY DAY . MEDICATI ON TO BE STARTED 3 DAYS BEFORE SURGERY. active Not Available Not Available No t Available methylphe nidate 10 mg tablet TAKE 1 TABLET BY MOUTH IN THE MORNING AND TAKE 2 TABLETS IN THE EVENING FOR 60 DAYS active Not Available Not Available No t Available sertralin e 100 mg tablet TAKE 1 TABLET BY MOUTH EVERY DAY DIRECTED active Not Available Not Available No t Available aspirin 81 mg tablet,de layed release 2017 active Medicati on ID: [id number] B rand Name: aspirin Send Method: E-Prescr ibed Sub s Allowed: subs [facility] Not Available Not Available Not Available tramadol 50 mg tablet TAKE 1 TABLET BY MOUTH EVERY 6 HOURS NEEDED FOR 7 DAYS 04/07 completed Not Available Not Available Not Available ferrous sulfate 325 mg (65 mg iron) tablet TAKE 1 TABLET BY MOUTH EVERY DAY active Not Available Not Available No t Available losartan 25 mg tablet active Not Available Not Available Not Available metoprolo l tartrate 50 mg tablet active Not Available Not Available Not Available docusate sodium 100 mg capsule DIRECTED TAKE 1 CAPSULE TWICE A DAY . MEDICATI ON TO BE STARTED AFTER SURGERY active Not Available Not Available No t Available sertralin e 25 mg tablet 04/07 completed Not Available Not Available Not Available ferrous sulfate 325 mg (65 mg iron) tablet,de layed release active Not Available Not Available Not Available sertralin e 50 mg tablet active Not Available Not Available Not Available methylphe nidate ER 36 mg tablet,ex tended release 24 hr 04/07 completed Medicati on ID: [id number] D uration Value: 30 Brand Name: methylph enidate HCl Send Method: E-Prescr ibed Sub s Allowed: subs OK Medic Bertin ericName : methylph enidate HCl Not Available Not Available Not Available oxycodone 5 mg tablet TAKE 1 TO 2 TABLETS BY MOUTH EVERY 4 HOURS NEEDED FOR MILD PAIN 04/07 completed Not Available Not Available Not Available ezetimibe 10 mg tablet active Not Available Not Available Not Available rosuvasta tin 40 mg tablet 04/07 completed Not Available Not Available Not Available GaviLyte- G 236 gram-22.7 4 gram-6.74 gram-5.86 gram oral solution PLEASE SEE ATTACHED FOR DETAILED DIRECTIO NS 04/07 completed Not Available Not Available Not Available Eliquis 2.5 mg tablet TAKE 1 TABLET BY MOUTH TWO TIMES A DAY active Not Available Not Available No t Available metoprolo l tartrate 37.5 mg tablet 2017 active Medicati on ID: [id number] D uration Value: 30 Brand Name: metoprol ol tartrate Send Method: E-Prescr ibed Sub s Allowed: subs OK Medic ationGen ericName : metoprol ol tartrate Not Available Not Available Not Available Tiadylt ER 240 mg capsule,e xtended release TAKE 1 CAPSULE BY MOUTH DAILY active Not Available Not Available No t Available Paxlovid 300 mg (150 mg x 2)-100 mg tablets in a dose pack TAKE 3 TABLETS BY MOUTH TWICE A DAY FOR 5 DAYS DIRECTED active Not Available Not Available No t Available Vitals Date Recorded Body height Body mass index (BMI) Body weight Provider Name and Address Organization Details Last Updated DateTime 04/07/2024 167.64 cm 31.6 kg/m2 85116.1 g Medina Newman [place] - [facility] 04/07/2024 13:49:49 Social History None recorded. Functional Status None recorded. Mental Status None recorded. Family History Nothing Reported. Medical History Condition Response Depression Y Kidney Disease Anxiety Y Asthma Y Hypertension Y Past Encounters Encounter ID Performer Location Encounter Start Date Encounter Closed Date Diagnosis/Indication Diagnosis SNOMED-CT Code Diagnosis ICD10 Code Diagnosis Note [id number] AYAH KAUR PA-C [facility] [address] [address] 04/07/2024 13:26:44 04/07/2024 14:57:35 Impacted cerumen of bilateral ears 7734177634 210886 H61.23 Sensorineu ral hearing loss of bilateral ears 609662893 H90.3 [id number] AJAY CORREA [facility] [address] [address] 04/07/2024 14:13:12 04/08/2024 14:11:12 Sensorineural hearing loss of bilateral ears 846219486 H90.3 Audiologic al evaluation results:Ri ght ear:{{Norm al sloping* M ild Modera te Moderat anatoliy-severe Severe Pr ofound Nor mal auditory thresholds }} to {{mild mod erate* mod erately-se asad sever e profound with}} {{sensorin eural hearing loss with* cond uctive hearing loss with mixed hearing loss with}} {{excellen t* good fa ir poor no t measurable }} word recognitio n.Left ear:{{Norm al sloping* M ild Modera te Moderat anatoliy-severe Severe Pr ofound Nor mal auditory thresholds }} to {{mild mod erate* mod erately-se asad sever e profound with}} {{sensorin eural hearing loss with* cond uctive hearing loss with mixed hearing loss with}} {{excellen t* good fa ir poor no t measurable }} word recognitio n.Tympanom etry:Right Ear:{{Type A* Type As Type Ad Type C Type C, shallow & rounded Ty pe B Type B with large volume Cou ld not maintain a hermetic seal}}Left Ear:{{Type A* Type As Type Ad Type C Type C, shallow & rounded Ty pe B Type B with large volume Cou ld not maintain a hermetic seal}} [id number] AJAY CORREA [place] [address] [facility] [address] [place] [address] 07/02/2024 10:01:27 07/05/2024 08:04:01 Sensorineural hearing loss of bilateral ears 595376625 H90.3 Health Concerns Section Related Observation LastModified by Organization Detai ls LastModified Time None Recorded Concern Status LastModified by Organization Details LastModified Time None Recorded Advance Directives Directive None Recorded Payers Encounter Date Sequence Insurance Name Policy Number Policy Baker Covered Member ID Baker Member ID Guarantor Name 04/07/2024 1 [place] Royce Infanteer [id number] Royce Clarke 04/07/2024 2 [place] [id number] Royce Infanteer [id number] Royce Clarke 04/07/2024 1 [place] Royce Infanteer [id number] Royce Infanteer 07/02/2024 1 [place] Royce Infanteer [id number] Royce Infanteer 07/02/2024 2 [place] [id number] Royce Infanteer [id number] Royce Clarke Notes Date Note Type Note Provider Name and Address Organization Details Recorded Time 04/07/2024 text/html 74-year-old male presents for cerumen removal. History of cerumen impaction and concerns for hearing loss. Has not been able to obtain a hearing test from outpatient breastfeeding peer counselor due to impaction. AYAH KAUR PA-C [address] [facility],[place] [address], [place], [address], [facility] 04/07/2024 15:25:02 04/07/2024 text/html Audiological Evaluation HPIReported bypatient.Hearing loss perceived:hearing loss in both ears: no differences noted between ears; gradual onset AJAY CORREA [address] [facility],[place] [address], [place], [address], [facility] 04/07/2024 14:29:54 07/02/2024 text/html Pt is here today with {{spouse* daughter son}}. Pt is {{a* an}} {{new* experienced} } user of hearing aids. Here today due to difficulty {{ in background noise. He is not super frustrated but his spouse is becoming more concerned.#}} Lifestyle: {{ part of meetings, and clubs. Goes to zoroastrianism, grocery store, and seminars. Tendsto avoid big groups. #}} Discussed type, technology levels, and manufacturers of hearing aids. Type of phone: {{iphone android (galaxy) android (off brand) no smart phone android#}} If moving forward we will be ordering:{{Oticon p honak* Widex}} {{ [id number] in [facility]#}}Receive r: {{ 2M#}}Domes: {{ open large#}}Other: {{}} Paid today: {{}}Due at fitting {{ 4614.00#}}Total: {{}} AJAY CORREA [address] [facility],[address], [address], [facility] 07/02/2024 10:35:03
--- OUTSIDE RECORDS SUMMARY | 2024-08-24 16:35 | XMS_ITS | Clinical Summary ---
Author Organization [facility] Address [address] [facility] [address] [place] [address] Phone Care Team Providers Care Biological Sciences Instructor Name Role Phone Tripp Castro Primary Care Provider [phone] Allergies Active Allergy Reactions Criticality Noted Date Comments Atorvastatin Other (see comments) 05/07/2006 Pain syndrome Calamine Other (see comments) 01/19/2009 Medications aspirin (ST BILL) 81 MG EC tablet Take 1 tablet by mouth 1 (one) time each day Active cholecalciferol (VITAMIN D-3 SUPER STRENGTH) 50 MCG (1999 UT) tablet Take 1 tablet by mouth 1 (one) time each day Active methylphenidate (RITALIN) 10 MG tablet Take 1 tablet by mouth 3 (three) times a day Active rosuvastatin (CRESTOR) 40 MG tablet Take 1 tablet by mouth 1 (one) time each day Active sertraline (ZOLOFT) 100 MG tablet Take 1 tablet by mouth 1 (one) time each day Active sertraline (ZOLOFT) 25 MG tablet 1 Active OMEPRAZOLE PO omeprazole Take No date recorded No form recorded No frequency recorded No route recorded No set duration recorded No set duration amount recorded active No dosage strength recorded No dosage strength units of measure recorded 1 Active cetirizine (ZyrTEC) 10 MG tablet Take 1 tablet by mouth 1 (one) time each day 0 Active Magnesium 250 MG tablet Take 2 tablets by mouth 2 (two) times a day Active metoprolol tartrate (LOPRESSOR) 50 MG tablet TAKE 1 TABLET TWICE DAILY 180 tablet 3 Active Active Problems Problem Noted Date Diagnosed Date Hypertension 05/21/2021 Hypertensive disorder 09/20/2017 Overview (05/16/2021): Renal (12/29/17): Seen for hypertension, tachycardia. His 24-hour blood pressure monitor showed uncontrolled blood pressures. His metoprolol was increased to 37.5 mg twice a day. He needs to see a EP physician. Metanephrines ordered. Labs: normetanephrine plasma = 249 (abdnormal), total metanephrine 296 (Abnormal), metanephrine = 47 Renal (08/07/17): 24bp monitoring ordered. Low sodium/dash diet. Microscopic hematuria 04/20/2017 Overview (05/16/2021): Urology(04/11/17): prior CT showed no pathology, cysto 2013 negative, cytology negative, no gross heme, no longer seen blood in urine. Recent PSA 0.9, GIOVANNY WNL, f/u in 1 year. Resolved Problems Problem Noted Date Diagnosed Date Resolved Date Depressive disorder 07/17/2021 07/17/19 Gastroesophageal reflux disease 07/17/2021 07/17/2021 Cramp in lower limb 05/21/2021 06/28/19 Acute pharyngitis 02/19/2021 07/17/2021 Contact with and (suspected) exposure to COVID-19 02/19/2021 07/17/2021 Cough 02/19/2021 07/17/2021 Acute upper respiratory infection 02/15/2021 07/17/2021 Gastro-esophageal reflux dis ease with esophagitis 10/18/2020 06/28/2021 Abdominal aortic aneurysm 09/15/2019 Aneurysm of aorta 07/18/2019 05/16/2021 Overview (05/16/2021): Infrarenal; MRI May, 2019; 3.1 cm Family history of malignant melanoma 02/15/2019 05/16/2021 Overview (05/16/2021): Family history of malignant melanoma of skin father Frequent headache 04/13/2018 05/16/2021 Osteoarthritis of joint of bilateral hands 02/20/2015 05/16/2021 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/2008 Overview (05/16/2021): Quayyam; Ritalin, Sertraline Hyperlipidemia 04/03/2006 05/16/2021 Immunizations Name Administration Dates Next Due Influenza Split High Dose Pr eservative Free IM 05/14/2021,03/23/2020,03/16/2019,02/18 Influenza TIV (IM) 03/01/2015, 4,05/15/2012,06/24,02/26/2010,03/15/2008,05/07/2006 Influenza, MDCK, Quadrivalen t, with preservative 04/09/2017 Moderna SARS-COV-2 08/28/2020,07/30/2020 Pfizer SARS-COV-2 04/05/2021 Pneumococcal Conjugate 13-Valent 04/09/2017 Pneumococcal Polysaccharide 10/20/2020 Td 03/16/2019 Tdap 03/15/2008 Zoster 12/16/2014 Family History Medical History Relation Comments Diabetes Mother Hypertension Mother Relation Status Comments Father Alive Mother Social History Tobacco Use Types Packs/Day Years Used Date Smoking Tobacco: Never Smokeless Tobacco: Never Alcohol Use Standard Drinks/Week Comments No 0 (1 standard drink = 0.6 oz pur e alcohol) Sex and Gender Information Value Date Recorded Sex Assigned at Not on file Legal Sex Male 4:51 PM EST Gender Identity Not on file Sexual Orientation Not on file Last Filed Vital Signs Vital Sign Reading Time Taken Comments Blood Pressure 120/70 07/17/2021 2:36 PM EST Pulse 74 07/17/2021 2:36 PM EST Temperature - - Respiratory Rate - - Oxygen Saturation 97% 05/23/2020 12:00 PM EST Inhaled Oxygen Concentration - - Weight 83.6 kg (184 lb 3.2 oz) 07/17/2021 2:36 P M EST Height 172.7 cm (5' 8 ) 05/23/2020 12:00 PM EST Body Mass Index 28.01 05/23/2020 12:00 PM EST Plan of Treatment Health Maintenance Due Date Last Done Comments Colorectal Cancer Screening: Annual FOBT 2000 Colorectal Cancer Screening: Colonoscopy 2000 Colorectal Cancer Screening: Sigmoidoscopy 2000 Influenza Vaccine (#1) 2024 , 03/23/2020, 03/16/2019, Additional history exists Pneumococcal Vaccine: 65+ Years Completed 10/20/2020, 04/09/2017 Hepatitis B Vaccine Aged Out No longe r eligible based on patient's age to complete this topic Insurance Care Teams Biological Sciences Instructor Relationship Specialty Start Date End Date Tripp Castro [address] [place] [id number] PCP - General 06/05/20
== END 2024-08-24 14:17 | disposition home or self-care (01) ==
LOC: HO.HKAS 13:56
PROVIDERS: PCP Internal Medicine; Visit Provider Internal Medicine Nephrology
DX: I10 Essential (primary) hypertension (principal); N20.0 Calculus of kidney
CPT/HCPCS: 99214

== ENCOUNTER → 2024-08-24 13:55 | Outpatient (BNVA) | payer MEDICARE, SELFPAY | PROVIDERS: PCP Internal Medicine; Visit Provider Internal Medicine Nephrology | DX: I10 Essential (primary) hypertension (principal); N20.0 Calculus of kidney | CPT/HCPCS: 99212 ==

== ENCOUNTER 2024-11-18 10:24 | Outpatient (AMB) | payer MEDICARE, SELFPAY ==
--- NOTE | 2024-11-18 10:28 | HO.NEPHOV ---
Vital Signs 11/18/24 10:29 Height 5 ft 6 in BP 120/80 Blood Pressure Location Lt brachial Position Sitting Pulse 66 Pulse Source Pulse Oximeter Pulse Oximetry (%) 99 Oxygen Delivery Method Room Air Intake Visit Reasons: Per Dr Villafana-Andre Intake Note: Patient here for a follow-up. Algebra Tutor Required: No Accompanied by: Spouse Allergies atorvastatin (From Lipitor) Allergy (Verified 11/18/24 10:31) Unknown calamine Allergy (Verified 11/18/24 10:31) Unknown Do you need a note to return to daycare/school/sports/work: No HPI Comments Details: I had the pleasure of seeing Royce in follow-up for his hypertension. His blood pressure has been at goal. He denied chest pain, shortness of breath, paroxysmal nocturnal dyspnea, orthopnea, pedal edema or urinary symptoms . He has a new diagnosis of metastatic prostate cancer. He does not take nonsteroidal anti-inflammatory medications on a regular basis. He tries to maintain himself well hydrated. He did not have any new issues with renal stone. He sees Urology and Oncology. [facility] Medical History Spermatocele Varicocele Hydrocele Osteoarthritis Hypertension Surgical History S/P rotator cuff repair History of hernia repair History of arthroscopic knee surgery Family History Mother Diabetes Cancer Alzheimer disease Father Heart disease High cholesterol Brother Hx of CABG Social History Alcohol intake: never Patient Tobacco Use Status: Never used Tobacco Review of Systems Const All systems reviewed & are unremarkable except as noted in HPI and below Physical Exam Vital Signs: Last Vital Signs Pulse 66 11/18/24 10:29 BP 120/80 11/18/24 10:29 Pulse Ox 99 11/18/24 10:29 Oxygen Delivery Method Room Air 11/18/24 10:29 Const General: comfortable and no acute distress Orientation/consciousness: patient oriented x3 HEENT Head: Yes normocephalic Mouth: Normal oral and palatal mucosa present Eyes EOM: EOMs intact bilaterally Neck Neck: Yes supple Resp Auscultation: clear to auscultation bilaterally Cardio Jugular venous distension: no JVD Rate: regular rate GI Palpation (GI): Soft to palpation Auscultation: normal bowel sounds General: Yes no CVA tenderness Back/Spine/Pelvis Back: no CVA tenderness Skin General skin exam: no rashes or lesions noted Neuro General: patient oriented x3 and moves all extremities Extrem General: Yes no pedal edema Results Reviewed Nephrology Results: Sodium, (135-145) 141 mmol/L 01/08/24 Potassium, (3.3-5.1) 4.1 mmol/L 01/08/24 Chloride, (96-108) 108 mmol/L 01/08/24 Carbon Dioxide, (22-29) 25 mmol/L 01/08/24 BUN, (9-16) 18 mg/dL H 01/08/24 Creatinine, (0.5-1.4) 0.93 mg/dL 01/08/24 Assessment & Plan Assessment & Plan (1) Hypertension: Code(s): I10 - Essential (primary) hypertension Category: Medical Qualifiers: Hypertension type: primary hypertension Qualified Code(s): I10 - Essential (primary) hypertension (2) Renal calculus: Code(s): N20.0 - Calculus of kidney Category: Medical Plan Royce has longstanding hypertension and is very well controlled on current medication regimen (his HR was high after D/Cing metoprolol. (He felt that he may be having wheezing and tiredness from metoprolol). He is on losartan 25 mg daily along with Diltiazem. ( was on metoprolol 50 mg twice daily) His wheezing is gone now. He denies taking nonsteroidal anti-inflammatory medications for his left knee issues. He tries to maintain a low-sodium diet. He is trying to lose weight. He tries to remain himself well hydrated. I did not make any other medication changes today. All questions were answered. Follow-up blood work ordered Coding Level of Care Code Est Pt Level 4 (85796) Diagnoses Primary hypertension I10 Hypertension type: primary hypertension Renal calculus N20.0
[2024-11-18 10:29] VITALS: BP 120/80; PULSE 66; O2SAT 99
--- OUTSIDE RECORDS SUMMARY | 2024-11-18 12:07 | XMS_ITS | Encounter Summary ---
Author Organization [facility] Address [address] [place] [address] Care Team Providers Care Dog Catcher Name Role Phone Tripp Montano MD Primary Care Provider [phone] French Pozo MD Unavailable [phone] Encounter Details Date Type Department Care Team Description 07/03/2020 Pt. Non Urgent Medical Question Gastroenterology - [address] [place] [id number] Ariana Grimaldo DScPAS Social History Tobacco Use Types Packs/Day Years Used Date Smoking Tobacco: Never Smokeless Tobacco: Never Alcohol Use Standard Drinks/Week Comments Yes 0 (1 standard drink = 0.6 oz pur e alcohol) rare Sex Assigned at Date Recorded Male 09/20/2020 1:47 PM E DT Job Start Date Occupation Industry Not on file Not on file Not on file COVID-19 Exposure Response Date Recorded In the last month, have you been in contact with someone who was confirmed or suspected to have Coronavirus / COVID-19? Unable to assess 06/19/2020 9:09 AM EST documented as of this encounter Progress Notes * Donald Xiao M.A. - 07/04/2020 11:23 AM ESTFrom: Royce Clarke To: Ariana Grimaldo PA-C Sent: 07/03/2020 3:30 PM EST Subject: CT scan My abdomen pain is ongoing, somewhat less while on a bland diet. [employer] indicated that the CT scan was denied because they needed more information. Wouldn't saywhat that info was. Please work with them to get me that CT scan RAYA. I'm sick of this pain and the bland diet. Also, please call me when there's an appointment cancellation with you so I can see you sooner. Thanks! documented in this encounter Plan of Treatment Not on file documented as of this encounter Visit Diagnoses Not on filedocumented in this encounter Care Teams Dog Catcher Relationship Specialty Start Date End Date Tripp Montano MD [address] [place] [id number] PCP - General Internal Medicine 04/09/17 French Pozo MD [address] [place] [id number] Specialist Cardiology 10/09/22 documented as of this encounter
== END 2024-11-18 11:00 | disposition home or self-care (01) ==
LOC: HO.HKAS 10:25
PROVIDERS: PCP Internal Medicine; Visit Provider Internal Medicine Nephrology
DX: I10 Essential (primary) hypertension (principal); N20.0 Calculus of kidney
CPT/HCPCS: 99214

== ENCOUNTER → 2024-11-18 10:24 | Outpatient (BNVA) | payer MEDICARE, SELFPAY | PROVIDERS: PCP Internal Medicine; Visit Provider Internal Medicine Nephrology | DX: I10 Essential (primary) hypertension (principal); N20.0 Calculus of kidney | CPT/HCPCS: 99212 ==

== ENCOUNTER 2025-05-17 10:34 | Outpatient (AMB) | payer MEDICARE, SELFPAY ==
--- NOTE | 2025-05-17 10:36 | HO.NEPHOV_ITS ---
Vital Signs 05/17/25 10:37 Height 5 ft 6 in Weight 200 lb BMI 32.3 BP 118/76 Blood Pressure Location Lt brachial Position Sitting Intake Visit Reasons: 6 mo follow up-[facility] Enrolled Agent Required: No Accompanied by: Spouse Allergies atorvastatin (From Lipitor) Allergy (Verified 05/17/25 10:40) Unknown calamine Allergy (Verified 05/17/25 10:40) Unknown HPI Comments Details: I had the pleasure of seeing Royce in follow-up for his hypertension. His blood pressure has been at goal. He denied chest pain, shortness of breath, paroxysmal nocturnal dyspnea, orthopnea, pedal edema or urinary symptoms . He has a new diagnosis of metastatic prostate cancer and has been getting chemotherapy in [facility] . He does not take nonsteroidal anti-inflammatory medications on a regular basis. He tries to maintain himself well hydrated. He did not have any new issues with renal stone. He sees Urology and Oncology. [facility] Medical History Spermatocele Varicocele Hydrocele Osteoarthritis Hypertension Surgical History S/P rotator cuff repair History of hernia repair History of arthroscopic knee surgery Family History Mother Diabetes Cancer Alzheimer disease Father Heart disease High cholesterol Brother Hx of CABG Social History Alcohol intake: never Patient Tobacco Use Status: Never used Tobacco Review of Systems Const All systems reviewed & are unremarkable except as noted in HPI and below Physical Exam Const General: comfortable and no acute distress Orientation/consciousness: patient oriented x3 HEENT Head: Yes normocephalic Mouth: Normal oral and palatal mucosa present Eyes EOM: EOMs intact bilaterally Neck Neck: Yes supple Resp Auscultation: clear to auscultation bilaterally Cardio Jugular venous distension: no JVD Rate: regular rate GI Palpation (GI): Soft to palpation Auscultation: normal bowel sounds General: Yes no CVA tenderness Back/Spine/Pelvis Back: no CVA tenderness Skin General skin exam: no rashes or lesions noted Neuro General: patient oriented x3 and moves all extremities Extrem General: Yes no pedal edema Assessment & Plan Assessment & Plan (1) Renal calculus: Code(s): N20.0 - Calculus of kidney Category: Medical (2) Hypertension: Code(s): I10 - Essential (primary) hypertension Category: Medical Qualifiers: Hypertension type: primary hypertension Qualified Code(s): I10 - Essential (primary) hypertension Plan Royce has longstanding hypertension and is very well controlled on current medication regimen (his HR was high after D/Cing metoprolol. (He felt that he may be having wheezing and tiredness from metoprolol). He is on losartan 25 mg daily along with Diltiazem. ( was on metoprolol 50 mg twice daily). We can consider D/Cing losartan and increase Diltiazem if his HR goes up. He tries to maintain a low-sodium diet. He is trying to lose weight. He tries to remain himself well hydrated. I did not make any other medication changes today. All questions were answered. Follow-up blood work ordered Orders: Orders Electrolytes 6 Months I10 - Essential (primary) hypertension, N20.0 - Calculus of kidney Creatinine 6 Months I10 - Essential (primary) hypertension, N20.0 - Calculus of kidney Calcium 6 Months I10 - Essential (primary) hypertension, N20.0 - Calculus of kidney Blood Urea Nitrogen 6 Months I10 - Essential (primary) hypertension, N20.0 - Calculus of kidney Coding Level of Care Code Est Pt Level 4 (14229) Diagnoses Renal calculus N20.0 Primary hypertension I10 Hypertension type: primary hypertension
[2025-05-17 10:37] VITALS: BP 118/76; BMI 32.3
--- OUTSIDE RECORDS SUMMARY | 2025-05-17 11:53 | XMS_ITS | Continuity of Care Document ---
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 Cerumen removed bilaterally. Recommended extending cerumen from 6 months to 1 year which will be arranged. All questions were answered. [email or web address] Not available 04/11/2025 13:31:47 Plan of Treatment Reminders Order Date Submit Date Provider Last Modified By Organization Details Last Modified Time Details Appointments Establish ed 15 2025 01:00P M AYAH KAUR PA-C Not available Not available Not available Lab None recorded. Referral None recorded. Procedures None recorded. Surgeries None recorded. Imaging None recorded. Medication Orders None recorded. Patient TargetsNo targets recorded. Patient InstructionsNo instructions recorded. Reason for Referral None Reported. Problems Name Problem SNOMED Code Status Onset Date Resolution Date Notes Provider Name and Address Organization Details Recorded Time Hyperlipi demia 42824396 Active 2005 Lucia nicole [place] - [facility] 5 13:27:20 Attention deficit hyperacti vity disorder, predomina ntly inattenti ve type 06931406 Active 2007 DAVID Altman [facility] 5 13:27:20 Osteoarth ritis of joint of bilateral hands 51391767726 9109 Active 2014 Lucia Mcgowan null, [place] - [facility] 5 13:27:20 Microscop ic hematuria 534226669 Active 2016 Lucia nicole [place] - [facility] 5 13:27:20 Hypertens jacob disorder 90302983 Active 2017 Lucia nicole [place] - [facility] 5 13:27:20 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 789174585 Active 2017 Coagulati on defects: Other hemorrhag ic disorder due to intrinsic circulati ng anticoagu lants, antibodie s, or inhibitor s; Note: Date Diagnosed : 03/01/2015 8:41 AM () Not Available [facility] 4 03:13:33 Essential hypertens ion 68413571 Active 2017 Essential (primary) hypertens ion; Note: Date Diagnosed : 07/03/2017 4:30 PM (I10) Not Available [facility] 4 03:13:34 Bleeding from nose 947282266 Active 2017 Epistaxis ; Note: Date Diagnosed : 07/03/2017 4:04 PM (R04.0) Not Available [facility] 4 03:13:33 Epistaxis Active 2017 Epistaxis ; Note: Date Diagnosed : 03/01/2015 8:41 AM () Not Available [facility] 4 03:13:33 Long-term current use of antiplate let drug 24079717295 4101 Active 2017 prison (current) use of antithrom botics/an tiplatele ts; Note: Date Diagnosed : 12/13/2016 12:51 PM (Z79.02) Not Available [facility] 4 03:13:34 Frequent headache 071072635 Active 2017 Lucia nicole [place] - [facility] 5 13:27:20 Impacted cerumen in right ear 54236867524 80970 Active 2018 Impacted cerumen, right ear; Note: Date Diagnosed : 03/29/2019 3:02 PM (H61.21) Not Available [facility] 4 03:13:34 Aortic aneurysm 92486688 Active 2019 Lucia nicole [place] - [facility] 5 13:27:20 Gastro-es ophageal reflux disease with esophagit is 045926863 Active 2020 Lucia nicole [place] - [facility] 5 13:27:20 History of SARS-CoV- 2 84010945918 3989380 Active 2022 Lucia nicole [place] - [facility] 5 13:27:20 Dyspnea 507870946 Active 2022 Lucia nicole, [place] - [facility] 5 13:27:20 Fatigue 36769077 Active 2022 Lucia nicole, [place] - [facility] 13:27:20 Moderate asthma 758761804 Active 2023 Lucia nicole [place] - [facility] 5 13:27:20 Obese class I 42401889631 4107 Active 2023 Lucia nicole [place] - [facility] 5 13:27:20 Family history of malignant melanoma 040612742 Active 2023 Lucia nicole [place] - [facility] 5 13:27:20 Impacted cerumen of bilateral ears 77841720291 08171 Active 2023 AYAH KAUR PA-C [address] [place] [address], [place], [phone] , [facility] - [facility] 4 14:19:47 Sensorine ural hearing loss of bilateral ears 398096234 Active 2023 AJAY CORREA [address] [place] [address], [place], [phone] , [facility] - [facility] 4 14:23:59 Problem Notes None recorded. Procedures Surgical History Date Name Laterality Status Provider Name and Address Organization Details Recorded Time 5 Cerumen removal without microscope bilat completed AYAH KAUR PA-C [address] [facility] [place] [address], [place], [address], [place] - [facility] 04/11/2025 13:30:55 5 Cerumen removal without microscope bilat completed AYAH KAUR PA-C [address] [facility],[address], [address], [place] - [facility] 10/08/2024 13:51:03 4 Comp Audio with Tymps - 35531 & 38002 completed AJAY CORREA [address] [facility] [place] [address], [place], [address], [place] - [facility] 04/07/2024 14:23:53 4 Cerumen removal without microscope bilat completed AYAH KAUR PA-C [address] [facility],[address], [address], [facility] - [facility] 04/07/2024 14:19:17 Imaging Results None recorded. Procedure Notes None recorded. Medical Equipment None Reported. Allergies Allergen ID Allergen Name Allergen Category Reaction Reaction Severity Criticality Documentation Date Start Date Code Code System Note Provider Name and Address Organization Details Recorded Time 138228 Lipitor medicatio n other Not available Not available 10/07/2023 55465 5 RxNorm React ion: unkno wn, unspe cifie d;; Not Available [facility] 4 01:15:52 446809 calamine medicatio n other rash Not available Not available Not available 10/07/20232008 83101 2 RxNorm Lucia nicole [place] - [facility] 5 13:27:06 135229 atorvasta tin calcium medicatio n other Not available Not available 04/11/20252005 96568 RxNorm Pain syndr ome Not Available [facility] - External Data Service - prod 5 13:08:20 862374 atorvasta tin medicatio n other Not available Not available 04/11/20252005 37561 RxNorm Lucia nicole [place] - [facility] 5 13:27:06 584604 Calamine Plain medicatio n itching rash swelling Not available Not available Not available high 04/11/20252024 69665 3 RxNorm Not Available [facility] - External Data Service - prod 5 13:08:23 Medications Name Sig Start Date Stop Date Status Note LastModified by Organization Details LastModified Time celecoxib 200 mg capsule TAKE 1 CAPSULE EVERY DAY . MEDICATI ON TO BE STARTED 3 DAYS BEFORE SURGERY. active Not Available Not Available No t Available bicalutam carson 50 mg tablet 50 mg by oral route. active Not Available Not Available No t Available cetirizin e 10 mg tablet 10 mg by oral route. 2019 active Not Available Not Available Not Avai lable methylphe nidate 10 mg tablet TAKE 1 TABLET BY MOUTH IN THE MORNING AND TAKE 2 TABLETS IN THE EVENING FOR 60 DAYS active Not Available Not Available No t Available sertralin e 100 mg tablet TAKE 1 TABLET BY MOUTH EVERY DAY DIRECTED active Not Available Not Available No t Available prochlorp erazine maleate 10 mg tablet TAKE 1 TABLET BY MOUTH EVERY 6 HOURS NEEDED FOR NAUSEA active Not Available Not Available No t Available sulfameth oxazole 800 mg-trimet hoprim 160 mg tablet TAKE 1 TABLET BY MOUTH TWICE A DAY TAKE AM AND PM OF PROSTATE BX active Not Available Not Available No t Available aspirin 81 mg tablet,de layed release 81 mg by oral route. active Not Available Not Available No t Available tramadol 50 mg tablet TAKE 1 TABLET BY MOUTH EVERY 6 HOURS NEEDED FOR 7 DAYS 04/07 completed Not Available Not Available Not Available ondansetr on 8 mg disintegr ating tablet DISSOLVE 1 TABLET BY MOUTH EVERY 8 HOURS NEEDED FOR NAUSEA active Not Available Not Available No t Available dicyclomi ne 20 mg tablet TAKE 1 TABLET BY MOUTH 2 TIMES A DAY FOR 10 DAYS. active Not Available Not Available No t Available doxycycli ne monohydra te 100 mg capsule PLEASE SEE ATTACHED FOR DETAILED DIRECTIO NS active Not Available Not Available No t Available ferrous sulfate 325 mg (65 mg iron) tablet TAKE 1 TABLET BY MOUTH EVERY DAY active Not Available Not Available No t Available losartan 25 mg tablet TAKE 1 TABLET BY MOUTH EVERY DAY active Not Available Not Available No t Available metoprolo l tartrate 50 mg tablet active Not Available Not Available Not Available docusate sodium 100 mg capsule DIRECTED TAKE 1 CAPSULE TWICE A DAY . MEDICATI ON TO BE STARTED AFTER SURGERY active Not Available Not Available No t Available sertralin e 25 mg tablet 04/07 completed Not Available Not Available Not Available omeprazol e 20 mg capsule,d elayed release 20 mg by oral route. 2021 active Not Available Not Available Not Avai lable gabapenti n 100 mg capsule TAKE 1 CAPSULE BY MOUTH NIGHTLY AT BEDTIME. active Not Available Not Available No t Available albuterol sulfate HFA 90 mcg/actua tion aerosol inhaler INHALE 2 PUFFS BY MOUTH EVERY 6 HOURS NEEDED FOR WHEEZE OR FOR SHORTNES S OF BREATH active Not Available Not Available No t Available ferrous sulfate 325 mg (65 mg iron) tablet,de layed release active Not Available Not Available Not Available ketoconaz ole 2 % topical cream APPLY TO AFFECTED AREA TWICE A DAY FOR 2 WEEKS active Not Available Not Available No t Available fluticaso ne propionat e 50 mcg/actua tion nasal spray,helena pension 2 {spray}s by nasal route. 2016 active Not Available Not Available Not Avai lable sertralin e 50 mg tablet 50 mg by oral route. active Not Available Not Available No t Available methylphe nidate ER 36 mg tablet,ex tended release 24 hr 04/07 completed Medicati on ID: [id number] D uration Value: 30 Brand Name: methylph enidate HCl Send Method: E-Prescr ibed Sub s Allowed: subs OK Medic ationGen ericName : methylph enidate HCl Not Available Not Available Not Available amoxicill in 875 mg-potass ium clavulana te 125 mg tablet TAKE 1 TABLET BY MOUTH EVERY 12 HOURS FOR 10 DAYS 04/08 completed Not Available Not Available Not Available oxycodone 5 mg tablet TAKE 1 TO 2 TABLETS BY MOUTH EVERY 4 HOURS NEEDED FOR MILD PAIN 04/07 completed Not Available Not Available Not Available ezetimibe 10 mg tablet TAKE 1 TABLET BY MOUTH 1 TIME EACH DAY. active Not Available Not Available No t Available cholestyr amine (with sugar) 4 gram oral powder 4 g by oral route. 07/07 completed Not Available Not Available Not Available rosuvasta tin 5 mg tablet TAKE 1 TABLET BY MOUTH 1 TIME EACH DAY. active Not Available Not Available No t Available rosuvasta tin 40 mg tablet 20 mg by oral route. 2023 active Not Available Not Available Not Avai lable Flovent HFA 110 mcg/actua tion aerosol inhaler 1 {puff} twice a day by inhalati on route. 09/01 completed Not Available Not Available Not Available cholecalc iferol (vitamin D3) 50 mcg (2,000 unit) tablet 2000 units by oral route. active Not Available Not Available No t Available GaviLyte- G 236 gram-22.7 4 gram-6.74 gram-5.86 gram oral solution PLEASE SEE ATTACHED FOR DETAILED DIRECTIO NS 04/07 completed Not Available Not Available Not Available Eliquis 2.5 mg tablet TAKE 1 TABLET BY MOUTH TWO TIMES A DAY active Not Available Not Available No t Available metoprolo l tartrate 37.5 mg tablet 2017 active Medicati on ID: [id number] D uration Value: 30 Brand Name: metoprol ol tartrate Send Method: E-Prescr ibed Sub s Allowed: subs OK Medic ationGen ericName : metoprol ol tartrate Not Available Not Available Not Available Tiadylt ER 240 mg capsule,e xtended release TAKE 1 CAPSULE BY MOUTH EVERY DAY active Not Available Not Available No t Available Paxlovid 300 mg (150 mg x 2)-100 mg tablets in a dose pack TAKE 3 TABLETS BY MOUTH TWICE A DAY FOR 5 DAYS DIRECTED active Not Available Not Available No t Available Vitals None Recorded Social History None recorded. 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 Family History Nothing Reported. Medical History Condition Response Anxiety Y Depression Y Asthma Y Hypertension Y Kidney Disease Immunizations Vaccine Type Date Status Note Provider Nam e and Address Organization Details Recorded Time Influenza, MDCK, quadrivalent, preservative 7 completed Lucia nicole [place] - [facility] 04/11/2025 13:27:26 zoster recombinant 2 completed Lucia nicole [place] - [facility] 04/11/2025 13:27:26 zoster recombinant 2 completed Lucia Mcgowan null, [place] - [facility] 04/11/2025 13:27:26 Influenza, high-dose, quadrivalent, PF 3 completed Lucia Mcgowan null, [place] - [facility] 04/11/2025 13:27:26 Influenza, high-dose, quadrivalent, PF 2 completed Lucia Mcgowan null, [place] - [facility] 04/11/2025 13:27:26 COVID-19, mRNA, LNP-S, PF, 100 mcg/0.5mL dose or 50 mcg/0.25mL dose 1 completed Lucia nicole, [place] - [facility] 04/11/2025 13:27:26 COVID-19, mRNA, LNP-S, PF, 100 mcg/0.5mL dose or 50 mcg/0.25mL dose 1 completed Lucia nicole, [place] - [facility] 04/11/2025 13:27:26 COVID-19, mRNA, LNP-S, PF, 30 mcg/0.3 mL dose 2 completed Lucia nicole, [place] - [facility] 04/11/2025 13:27:26 COVID-19, mRNA, LNP-S, PF, 30 mcg/0.3 mL dose 4 completed Lucia nicole, [place] - [facility] 04/11/2025 13:27:26 COVID-19, mRNA, LNP-S, PF, 30 mcg/0.3 mL dose 3 completed Lucia Mcgowan null, [place] - [facility] 04/11/2025 13:27:26 COVID-19, mRNA, LNP-S, PF, 30 mcg/0.3 mL dose 1 completed Lucia nicole, [place] - [facility] 04/11/2025 13:27:26 RSV, recombinant, protein subunit RSVpreF, adjuvant reconstituted, 0.5 mL, PF 4 completed Lucia nicole, [place] - [facility] 04/11/2025 13:27:26 pneumococcal polysaccharide PPV23 1 completed Lucia nicole, [place] - [facility] 04/11/2025 13:27:26 influenza, unspecified formulation 3 completed Lucia nicole, [place] - [facility] 04/11/2025 13:27:26 Tdap 8 completed Lucia nicole, [place] - [facility] 04/11/2025 13:27:26 Pneumococcal conjugate PCV 13 7 completed Lucia nicole, [place] - [facility] 04/11/2025 13:27:26 zoster live 5 completed Lucia nicole, [place] - [facility] 04/11/2025 13:27:26 Influenza, high-dose, trivalent, PF 8 completed Lucia nicole, [place] - [facility] 04/11/2025 13:27:26 Influenza, high-dose, trivalent, PF 9 completed Lucia nicole, [place] - [facility] 04/11/2025 13:27:26 Influenza, high-dose, trivalent, PF 0 completed Lucia nicole, [place] - [facility] 04/11/2025 13:27:26 Influenza, high-dose, trivalent, PF 1 completed Lucia nicole, [place] - [facility] 04/11/2025 13:27:26 Influenza, split virus, trivalent, preservative 2 completed Lucia nicole, [place] - [facility] 04/11/2025 13:27:26 Influenza, split virus, trivalent, preservative 4 completed Lucia nicole, [place] - [facility] 04/11/2025 13:27:26 Influenza, split virus, trivalent, preservative 0 completed Lucia nicole, [place] - [facility] 04/11/2025 13:27:26 Influenza, split virus, trivalent, preservative 5 completed Lucia nicole [place] - [facility] 04/11/2025 13:27:26 Influenza, split virus, trivalent, preservative 8 completed Lucia nicole [place] - [facility] 04/11/2025 13:27:26 Influenza, split virus, trivalent, preservative 4 completed Lucia nicole [place] - [facility] 04/11/2025 13:27:26 Influenza, split virus, trivalent, preservative 6 completed Lucia nicole [place] - [facility] 04/11/2025 13:27:26 Influenza, split virus, trivalent, preservative 2 completed Lucia nicole [place] - [facility] 04/11/2025 13:27:26 Td (adult), 2 Lf tetanus toxoid, preservative free, adsorbed 9 completed Lucia nicole [place] [facility] 04/11/2025 13:27:26 Past Encounters Encounter ID Performer Location Encounter Start Date Encounter Closed Date Diagnosis/Indication Diagnosis SNOMED-CT Code Diagnosis ICD10 Code Diagnosis IMO Codes Diagnosis Note [id number] AYAH KAUR PA-C [facility] [address] [address] 04/11/2025 13:07:33 04/11/2025 13:27:48 Impacted cerumen of bilateral ears [id number] 729394 H61.23 Sensorineu ral hearing loss of bilateral ears 094006520 H90.3 Health Concerns Section Related Observation LastModified by Organization Detai ls LastModified Time None Recorded Concern Status LastModified by Organization Details LastModified Time None Recorded Payers Encounter Date Sequence Insurance Name Policy Number Policy Baker Covered Member ID Baker Member ID Guarantor Name 04/11/2025 1 [place] [employer] Royce Clarke [id number] Royce Clarke 04/11/2025 2 [place] [id number] Royce Clarke [id number] Royce Clarke Notes Date Note Type Note Provider Name and Address Organization Details Recorded Time 04/11/2025 text/html ROS as noted in the HPI 75-year-old male presents for cerumen removal. No acute issues since his last visit. SIS NAVARRETE MD [address] [place] [address], [phone], [facility] - [facility] 04/12/2025 07:37:50
--- OUTSIDE RECORDS SUMMARY | 2025-05-17 11:53 | XMS_ITS | Clinical Summary ---
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 10/10/19 24 Active ketoconazole (NIZORAL) 2 % cream 02/28/20 23 Active omeprazole (PriLOSEC) [address] capsule Take 1 capsule (20 mg total) by mouth 1 (one) time each day. 05/30/19 22 Active methylphenidate (RITALIN) 10 mg tablet Three Times A Day 05/07/20 21 Active cetirizine (ZyrTEC) 10 mg tablet Take 1 tablet (10 mg total) by mouth. 09/20/19 20 Active aspirin 81 mg EC tablet Take 1 tablet (81 mg total) by mouth. Active dilTIAZem (Tiadylt ER) 240 mg 24 hr capsule Take 1 capsule (240 mg total) by mouth 1 (one) time each day. 01/08/20 24 Active sertraline (ZOLOFT) 50 mg tablet Take 1 tablet (50 mg total) by mouth 1 (one) time each day. Total of 150 mg daily Active darolutamide (NUBEQA) 300 mg tablet 2 tablets (600 mg total) 2 (two) times a day 11/11/19 25 Active multivitamin (multivitamin-iro n-minerals) tablet Take 1 tablet by mouth daily. Active ezetimibe (ZETIA) 10 mg tablet Take 1 tablet (10 mg total) by mouth 1 (one) time each day. 90 tablet 1 12/10/19 25 Active calcium citrate-vitamin D 250 mg-2.5 mcg (100 unit) per tablet Take 1 tablet by mouth 2 (two) times a day. Active gabapentin (NEURONTIN) 100 mg capsule Take 1 capsule (100 mg total) by mouth daily. 01/19/20 25 Active albuterol HFA (PROAIR HFA ; PROVENTIL HFA ; VENTOLIN HFA) 90 mcg/actuation inhalerIndication s:Mild persistent asthma, unspecified whether complicated Inhale 2 puffs by mouth every 6 (six) hours if needed for wheezing or shortness of breath. 1 each 11 03/04/20 25 026 Active rosuvastatin (CRESTOR) 5 mg tabletIndications :Hyperlipidemia, unspecified hyperlipidemia type TAKE 1 TABLET BY MOUTH 1 TIME EACH DAY. 90 tablet 1 04/29/20 25 Active rosuvastatin (CRESTOR) 5 mg tabletIndications :Hyperlipidemia, unspecified hyperlipidemia type Take 1 tablet (5 mg total) by mouth 1 (one) time each day. 90 each 1 11/12/19 25 025 Discontinued Active Problems Problem Noted Date Diagnosed Date Prostate cancer metastatic to bone 11/16/2024 Assessment & Plan (11/25/2024 2:03 PM EDT): Currently denies any back pain. He is undergoing radiation treatment for his bone lesions. He will continue to follow-up with his oncologist and radiation oncologist. Prostate cancer 11/03/2024 Assessment & Plan (01/07/2025 12:50 PM EDT): Continue to follow-up with oncology. He has follow-up appointments booked. Sensorineural hearing loss (SNHL) of both ears 1 06/07/2023 Family history of malignant melanoma of skin [...] assessment for a mildly enlarged infrarenal aorta. 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 His 24-hour blood pressure monitor showed uncontrolled blood pressures. His metoprolol was increased to 37.5 mg twice a day. He needs to see a EP physician. Metanephrines ordered. Labs: normetanephrine plasma = 249 (abdnormal), total metanephrine 296 (Abnormal), metanephrine = 47 Renal (08/07/17): 24bp monitoring ordered. Low sodium/dash diet. Essential (primary) hypertension; Note: Date Diagnosed: 07/03/2017 4:30 PM (I10) Assessment & Plan (01/07/2025 12:50 PM EDT): Follow low-sodium diet. Continue current regimen of Diltiazem, losartan. Assessment & Plan (11/25/2024 2:03 PM EDT): Blood pressure stable. Follow sodium diet. Continue regimen of diltiazem, losartan. Assessment & Plan (10/28/2024 5:27 PM EDT): Today blood pressure is okay but we will monitor his blood pressure and heart rate when he starts Xtandi. For now, continue diltiazem at 240 mg daily. Orders: Ambulatory referral to Cardiology; Future Assessment & Plan (06/18/2024 5:51 PM EST): [...] he continues to improve. Assessment & Plan (01/07/2025 12:50 PM EDT): Follow low-cholesterol diet. Continue rosuvastatin. Assessment & Plan (10/28/2024 5:27 PM EDT): Patient follow low-cholesterol diet. Continue ezetimibe. Assessment & Plan (06/18/2024 5:51 PM EST): Follow low-cholesterol diet. Continue current treatment of ezetimibe. Encounters Date Type Department Care Team Description 05/04/2025 1:48 PM EST - 05/04/2025 11:59 PM EST Hospital Encounter [facility] Radiation Oncology [address] [place] [address] David Riley MD Discharge Disposition: Home or Self Care 04/19/2025 6:00 PM EST - 04/19/2025 11:59 PM EST Hospital Encounter [facility] MRI [address] [place] [address] Pain Discharge Disposition: Home or Self Care 04/19/2025 5:59 PM EST - 04/19/2025 11:59 PM EST Hospital Encounter [facility] MRI [address] [place] [address] Pain Discharge Disposition: Home or Self Care 03/08/2025 Telephone Pulmonology - [place] [address] [phone] [place] 03/04/2025 1:15 PM EDT Ancillary Procedure Pulmonology - [place] 175 [facility] [address] [place] [phone] LINDO (dyspnea on exertion); Mild persistent asthma, unspecified whether complicated 03/04/2025 1:00 PM EDT Office Visit Pulmonology - [place] 175 [facility] [address] [place] [phone] Susana Posada MD JASBIR on CPAP (Primary Dx); LINDO (dyspnea on exertion); Prostate cancer metastatic to bone ([facility]/HCC V24, [facility]/HCC V28); 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 ([facility]/HCC V24, [facility]/HCC V28); Mild persistent asthma, unspecified whether complicated 02/24/2025 3:00 PM EDT Office Visit Internal Medicine - [facility] [address] [place] [phone] Alexandr Barry NP Encounter for annual wellness visit (AWV) in Medicare patient (Primary Dx) from Last 3 Months Immunizations Immunization Administration Dates Next Due Influenza Quadravalent, 0.5m [...] subun it RSVpreF, 0.5mL, Preservative Free (Arexvy) 50yo and older 05/31/2023 Td Tetanus diptheria (Tdvax) 7yo and older 03/16/2019 Tdap Tetanus diptheria acell ular pertussis (Boostrix; Adacel) 7yo and older 03/15/2008 Zoster Live 12/16/2014 Zoster recombinant (Shingrix ) 19yo and older 11/22/2021,08/31/2021 Surgical History Surgery Date Site/Laterality Comments OTHER SURGICAL HISTORY 03/31 PROCEDURE: PSA, TOTAL SCREENING; COMMENT: 1.1 KNEE ARTHROSCOPY W/ DEBRIDEMENT PROCEDURE: NV ARTHRS KNEE DEBRIDEMENT/SHAVING ARTCLR CRTLG; COMMENT: bilat arthroscopy HERNIA REPAIR PROCEDURE: HISTORICAL HERNIA REPAIR/ING; COMMENT: Right COLONOSCOPY 07/27 PROCEDURE: HISTORICAL COLONOSCOPY; COMMENT: Leslie moreland OTHER SURGICAL HISTORY 10/11/13 PROCEDURE: COLON CA SCRN NOT HI RSK IND; COMMENT: rosannas; repeat in 10 yrs OTHER SURGICAL HISTORY 09/2013 Right PROCEDURE: NV OPEN REPAIR OF ROTATOR CUFF ACUTE OTHER SURGICAL HISTORY 09/2018 PROCEDURE: NV LIGATION/BIOPSY TEMPORAL ARTERY; COMMENT: negative BUNIONECTOMY CATARACT EXTRACTION ORTHOPEDIC SURGERY 07/25/2023 ABDOMINAL SURGERY 2009 Medical History Medical History Date Comments Other and unspecified hyperlipidemia 04/03/2006 DX:Other and unspecified hyperlipidemia ADD (attention deficit disorder) 03/15/2008 DX:ADD (attention deficit disorder) Family history of malignant melanoma of skin DX:Family history of maligna nt melanoma of skin; COMMENT: Family history of malignant melanoma of skin father Moderate asthma without complication 09/29/2023 DX:Moderate asthma without complication Hypertension Abdominal aneurysm ([facility] V24) Prostate cancer ([facility] V24 , [facility] V28) 09/29/2024 Cancer ([facility] V24, [facility] V28) 09/29/2024 Family History Medical History Relation Name Comments Alzheimer's disease Brother CABG Brother quadruple CABG Father Reed Hardy triple Heart attack Father Reed Marquezpner Heart disease Father Reed Marquezpner Hyperlipidemia Father Reed Wapner Hypertension Father Reed Wapner Lung disease Father Reed Wapner Melanoma Father Reed Marquezpner Prostate cancer Father Reed Marquezpner DM? Alzheimer's disease Mother Milka Cancer Mother Milka Diabetes Mother Milka Other: Dementia Mother Milka ureter cancer Mother Milka Relation Name Status Comments Brother Father Reed Marquezpner Mother Milka Social History Tobacco Use Types Packs/Day Years Used Date Smoking Tobacco: Never Smokeless Tobacco: Never Alcohol Use Standard Drinks/Week Comments Not Currently 0 (1 standard drink = 0.6 oz pure alcohol) A small sip 1 or 2 times a year. Housing Instability Answer Date Recorde d Are you worried that in the next 2 months you may not have stable housing? No 02/17/2025 Food Access & Nutrition Answer Date Rec orded Do you have access to a vari ety of food including fruits and vegetables? Yes 02/17/2025 Access to Healthcare Answer Date Record ed Within the last 3 months, ho w many times did you visit the emergency department for your medical care? 1 02/17/2025 Health Literacy Answer Date Recorded How often do you need to hav e someone help you when you read instructions, pamphlets, or other written material from your doctor or pharmacy? Rarely 02/17/2025 Caregiver: How often do you need to have someone help you when you read instructions, pamphlets, or other written material from your doctor or pharmacy? Not on file 02/17/2025 Financial Risk Answer Date Recorded How hard is it for you to pa y for the very basics like food, housing, medical care, and air conditioning / heating? Somewhat hard 02/17/2025 Transportation Answer Date Recorded Has the lack of transportati on kept you from meetings, work, or from getting things needed for daily living? No Has the lack of transportati on kept you from medical appointments or from getting medications? No 02/17/2025 Social Isolation Answer Date Recorded How often do you feel lonely or isolated from th ose around you? Never 02/17/2025 Food Risk Answer Date Recorded Within the past 12 months we worried whether our food would run out before we got money to buy more. Sometimes true 025 Within the past 12 months th e food we bought just didn't last and we didn't have money to get more. Sometimes true 02/17/2025 Dependent Care Answer Date Recorded Do you need help finding or paying for care for your loved ones. For example, exceptional children's teacher or elderly care for an older adult? No 02/17/2025 Education Answer Date Recorded Do you think completing more education or training, like finishing a GED, going to college, or learning a trade, would be helpful for you? Yes 02/17/2025 Employment and Income Answer Date Recor ded During the last four weeks, have you been actively looking for work? No 02/17/2025 Living Situation Answer Date Recorded What is your living situation? Unrecognized valu e 02/17/2025 Sex and Gender Information Value Date Recorded Sex Assigned at Male 04/04/2024 8:17 PM EST Legal Sex Male 9:31 AM EST Gender Identity Male 04/04/2024 8:17 PM EST Sexual Orientation Straight 04/04/2024 8: 17 PM EST Last Filed Vital Signs Vital Sign Reading Time Taken Comments Blood Pressure 132/84 05/04/2025 1:56 PM EST Pulse 106 05/04/2025 1:56 PM EST Temperature 36.1 C (97 F) 03/04/2025 1:06 PM EDT Respiratory Rate 16 03/04/2025 1:06 PM EDT Oxygen Saturation 95% 05/04/2025 1:56 PM EST Inhaled Oxygen Concentration - - Weight 90.3 kg (199 lb) 05/04/2025 1:56 PM EST Height 167.6 cm (5' 6 ) 03/04/2025 1:06 PM EDT Body Mass Index 32.12 03/04/2025 1:06 PM EDT Plan of Treatment Upcoming Encounters Date Type Department Care Team (Late st Contact Info) Description 06/30/2025 1:30 PM EST Appointment [facility] Bone Density [address] [place] [phone] 07/18/2025 10:50 AM EST Office Visit Gastroenterology - [address] [facility] [address] [phone] Ariana Grimaldo PA [address] [facility] [address] [place] [address] 09/30/2025 8:30 AM EDT Ancillary Procedure [facility] [address] [facility] [address] [place] [address] 10/03/2025 12:30 PM EDT Ancillary Procedure [facility] Cardiology [facility] [address] [facility] [address] [place] [address] 10/06/2025 1:00 PM EDT Office Visit Vascular Surgery - [place] 300 [facility] [address] [place] [address] Renetta Man MD [address] [place] [phone] 03/09/2026 2:00 PM EDT Office Visit Pulmonology - [place] 175 [facility] [address] [place] [phone] Susana Posada MD [address] [place] [phone] Health Maintenance Due Date Last Done Comments Drug Screen 1950 Non-Opioid Controlled Substance Agreement 1950 COVID-19 Vaccine (10 - Mixed Product risk season) 2025 02/21/2025, 01/27/2024, 03/09/2023, Additional history exists Social Influencers of Health Screening 02/17/2026 02/17/2025 Falls Risk Assessment 02/24/2026 02/24/2025 , 11/05/2024, 10/28/2024, Additional history exists Medicare Annual Wellness Visit 02/24/2026 02/24/2025 Hypertension/CHF/CAD Annual BMP Blood Test 05/03/2026 05/03/2025, 05/03/2025, 04/12/2025, Additional history exists DTaP,Tdap,and Td Vaccines (3 - Td or Tdap) 03/16/2029 03/16/2019, 03/15/2008 Cholesterol Screening (Lipid Panel) 01/07/2030 01/07/2025, 11/19/2023, 11/19/2023, Additional history exists Colorectal Cancer Screening: Colonoscopy 10/21/2033 10/22/2023 Pneumococcal Vaccine: 50+ Years Completed 10/20/2020, 04/09/2017 Zoster Vaccines Completed 11/22/2021, 04/0 12/2021, 12/16/2014 RSV Immunization Adult Patients Completed 05/31/2023 Hepatitis C Screening Completed 09/30/2023, 014 Depression Screening Completed 02/17/2025, 06/09/19 Influenza Vaccine Completed 02/21/2025, , 03/09/2023, Additional history exists HIB Vaccines Aged Out No longer eligi ble based on patient's age to complete this topic HPV Vaccines Aged Out No longer eligi ble based on patient's age to complete this topic Hepatitis A Vaccines Aged Out No long er eligible based on patient's age to complete this topic Hepatitis B Vaccines Aged Out No long er eligible based on patient's age to complete this topic IPV Vaccines Aged Out No longer eligi ble based on patient's age to complete this topic MMR Vaccines Aged Out No longer eligi ble based on patient's age to complete this topic Meningococcal ACWY Vaccine Aged Out N o longer eligible based on patient's age to complete this topic Meningococcal B Vaccine Aged Out No l onger eligible based on patient's age to complete this topic RSV Immunization Patients Under 20 months Aged Out No longer eligible based on patient's age to complete this topic Varicella Vaccines Aged Out No longer eligible based on patient's age to complete this topic Procedures Procedure Name Priority Date/Time Associated Diagnosis Comments MR LUMBAR SPINE WO CONTRAST Routine 04/19/2025 7:34 PM EST Pain MR THORACIC SPINE WO CONTRAST Routine 04/19/2025 7:04 PM EST Pain PULMONARY FUNCTION TESTING Routine 03/04/2025 2:37 PM EDT LINDO (dyspnea on exertion) Mild persistent asthma, unspecified whether complicated COMPREHENSIVE METABOLIC PANEL Routine 02/03/2025 2:48 PM EDT Diverticulitis LIPID PANEL WITH REFLEX TO DIRECT LDL Routine 01/07/2025 11:51 AM EDT Hyperlipidemia, unspecified hyperlipidemia type COLONOSCOPY Routine 10/22/2023 HEPATITIS C SCREENING Routine 09/30/2023 DEPRESSION SCREENING Routine 06/09/2023 from Last 3 Months or Most Recently Relevant to Health Maintenance Results * MR Lumbar Spine wo Contrast (04/19/2025 7:34 PM EST) Anatomical Region Laterality Modality L-spine, Spine Magnetic Resonan ce 04/27/2025 9:02 AM EST Impressions 04/27/2025 9:59 AM EST Multilevel degenerative changes of the lumbar spine as detailed above. -------- FINAL REPORT -------- Dictated By: Leodan Acosta Dictated Date: 04/27/2025 09:02 ET Assigned Physician: Leodan Acosta Reviewed and Electronically Signed By: Leodan Acosta Signed Date: 04/27/2025 09:59 ET Workstation ID: [id number] Transcribed By: Self Edit Transcribed Date: 04/27/2025 09:02 ET Narrative 04/27/2025 9:59 AM EST PROCEDURE: MRI of the lumbar spine without contrast. TECHNIQUE: Multiplanar multisequence MRI of the lumbar spine without intravenous contrast administration. HISTORY: pain COMPARISON: CT abdomen and pelvis 01/10/2025. FINDINGS: Bilateral renal parapelvic cysts. Partially visible sigmoid diverticulosis. No other paraspinous soft tissue findings. Mild Baastrup's disease. No compression deformity. Scattered Modic endplate changes, most prominent at L4-5 and L5-S1. No suspicious marrow infiltrative lesion. Slight S-shaped lumbar curvature. Normal position of the conus at L1. Lumbar disc levels: L1-2: Moderate disc space height loss and endplate irregularity eccentric to the left. Small symmetric disc osteophyte complex. Minimal bilateral facet arthropathy. No significant spinal or foraminal stenosis. L2-3: Moderate disc space height loss and endplate irregularity slightly eccentric to the left. Small symmetric disc osteophyte complex. Small inferiorly projecting extrusion in the right central region, projecting a millimeters below the level of the superior L3 endplate. Mild left greater than right facet arthropathy. Mild spinal stenosis. Moderate bilateral lateral recess stenosis. No significant foraminal stenosis. L3-4: Moderate diffuse disc space height loss and endplate irregularity. Small symmetric disc osteophyte complex. Small inferiorly projecting right central extrusion which projects 9 mm below the level of the superior L4 endplate. Mild bilateral facet arthropathy and ligamentum flavum hypertrophy. Mild left greater than right foraminal stenosis. Moderate spinal stenosis. L4-5: Moderate diffuse disc space height loss and endplate irregularity. Small discussed by complex slightly eccentric to the left. Mild bilateral facet arthropathy. Slight widening of the left facet joint hypermobility, with mild bilateral ligamentum flavum hypertrophy. Mild left and moderate right foraminal stenosis. Moderate-severe spinal stenosis. L5-S1: The anterior endplates are partially fused. There is a small symmetric disc osteophyte complex. Mild bilateral facet arthropathy. No significant spinal or foraminal stenosis. Procedure Note Leodan Acosta MD - 04/27/2025 PROCEDURE: MRI of the lumbar spine without contrast. TECHNIQUE: Multiplanar multisequence MRI of the lumbar spine withoutintravenous contrast administration. HISTORY: pain COMPARISON: CT abdomen and pelvis 01/10/2025. FINDINGS: Bilateral renal parapelvic cysts. Partially visible sigmoiddiverticulosis. No other paraspinous soft tissue findings. Mild Baastrup's disease. No compression deformity. Scattered Modicendplate changes, most prominent at L4-5 and L5-S1. No suspicious marrowinfiltrative lesion. Slight S-shaped lumbar curvature. Normal position of the conus at L1. Lumbar disc levels: L1-2: Moderate disc space height loss and endplate irregularity eccentricto the left. Small symmetric disc osteophyte complex. Minimal bilateralfacet arthropathy. No significant spinal or foraminal stenosis. L2-3: Moderate disc space height loss and endplate irregularity slightlyeccentric to the left. Small symmetric disc osteophyte complex. Smallinferiorly projecting extrusion in the right central region, projecting amillimeters below the level of the superior L3 endplate. Mild leftgreater than right facet arthropathy. Mild spinal stenosis. Moderatebilateral lateral recess stenosis. No significant foraminal stenosis. L3-4: Moderate diffuse disc space height loss and endplate irregularity.Small symmetric disc osteophyte complex. Small inferiorly projectingright central extrusion which projects 9 mm below the level of thesuperior L4 endplate. Mild bilateral facet arthropathy and ligamentumflavum hypertrophy. Mild left greater than right foraminal stenosis.Moderate spinal stenosis. L4-5: Moderate diffuse disc space height loss and endplate irregularity.Small discussed by complex slightly eccentric to the left. Mild bilateralfacet arthropathy. Slight widening of the left facet joint hypermobility,with mild bilateral ligamentum flavum hypertrophy. Mild left and moderateright foraminal stenosis. Moderate- severe spinal stenosis. L5-S1: The anterior endplates are partially fused. There is a smallsymmetric disc osteophyte complex. Mild bilateral facet arthropathy. Nosignificant spinal or foraminal stenosis. IMPRESSION: Multilevel degenerative changes of the lumbar spine as detailed above. -------- FINAL REPORT -------- Dictated By: Leodan Acosta Dictated Date: 04/27/2025 09:02 ET Assigned Physician: Leodan Acosta Reviewed and Electronically Signed By: Leodan Acosta Signed Date: 04/27/2025 09:59 ET Workstation ID: [id number] Transcribed By: Self Edit Transcribed Date: 04/27/2025 09:02 ET Natividad Dasilva MD IMG MRI PROCEDURES Final Resul t * MR Thoracic Spine wo Contrast (04/19/2025 7:04 PM EST) Anatomical Region Laterality Modality T-spine, Spine Magnetic Resonan ce 04/27/2025 8:17 AM EST Impressions 04/27/2025 9:02 AM EST A previously described marrow replacing lesion in the left posterior T4 vertebral body extending into the pedicle and transverse process appears smaller and less well-defined. There are post radiation changes in the adjacent marrow spaces. No appreciable residual epidural extension on this noncontrast exam. -------- FINAL REPORT -------- Dictated By: Leodan Acosta Dictated Date: 04/27/2025 08:17 ET Assigned Physician: Leodan Acosta Reviewed and Electronically Signed By: Leodan Acosta Signed Date: 04/27/2025 09:02 ET Workstation ID: [id number] Transcribed By: Self Edit Transcribed Date: 04/27/2025 08:17 ET Narrative 04/27/2025 9:02 AM EST PROCEDURE: Noncontrast MRI of the thoracic spine. HISTORY: Pain after radiation. History of prostate cancer. COMPARISON: 11/03/2024. TECHNIQUE: Multiplanar multisequence MRI of the thoracic spine without intravenous contrast administration. FINDINGS: There are small bilateral renal parapelvic cysts. Partially visible sigmoid diverticulosis. Degenerative changes of the cervical and lumbar spine, with a mild lumbar dextroscoliosis, incompletely evaluated on this exam. Alignment is normal. No compression deformity. A previously described T2 hyperintense, T1 hypointense lesion in the left posterior T4 vertebral body extending into the left pedicle and left transverse process is smaller and less well-defined than on the prior exam. There is new T1 hyperintensity in the marrow spaces from the mid T1 level through the upper T6 level, consistent with postradiation change. The previous study demonstrated slight anterior epidural extension associated with this region on postcontrast images. Today's examination was not performed with contrast; no significant epidural extension is evident. Mild-moderate diffuse degenerative irregularity of the vertebral endplates and mild degenerative changes of facet joints. Small left central focal protrusions at T2-T3, T5-6 and T7-8 slightly indent the cord. Small right central focal protrusions at T3-4 and T4-5 slightly indent the cord. There is no significant spinal stenosis. A small disc osteophyte complex and hypertrophic degenerative changes of the facet joints results in mild bilateral foraminal stenosis at T12-L1. The cord is normal in caliber. No cord signal abnormality. Procedure Note Leodan Acosta MD - 04/27/2025 PROCEDURE: Noncontrast MRI of the thoracic spine. HISTORY: Pain after radiation. History of prostate cancer. COMPARISON: 11/03/2024. TECHNIQUE: Multiplanar multisequence MRI of the thoracic spine withoutintravenous contrast administration. FINDINGS: There are small bilateral renal parapelvic cysts. Partially visiblesigmoid diverticulosis. Degenerative changes of the cervical and lumbar spine, with a mild lumbardextroscoliosis, incompletely evaluated on this exam. Alignment is normal. No compression deformity. A previously described T2 hyperintense, T1 hypointense lesion in the leftposterior T4 vertebral body extending into the left pedicle and lefttransverse process is smaller and less well-defined than on the priorexam. There is new T1 hyperintensity in the marrow spaces from the mid [id number] through the upper T6 level, consistent with postradiation change.The previous study demonstrated slight anterior epidural extensionassociated with this region on postcontrast images. Today's examinationwas not performed with contrast; no significant epidural extension isevident. Mild-moderate diffuse degenerative irregularity of the vertebral endplatesand mild degenerative changes of facet joints. Small left central focalprotrusions at T2- T3, T5-6 and T7-8 slightly indent the cord. Small right central focal protrusions at T3-4 and T4-5 slightly indent thecord. There is no significant spinal stenosis. A small disc osteophyte complexand hypertrophic degenerative changes of the facet joints results in mildbilateral foraminal stenosis at T12-L1. The cord is normal in caliber. No cord signal abnormality. IMPRESSION: A previously described marrow replacing lesion in the left posterior [id number] body extending into the pedicle and transverse process appearssmaller and less well-defined. There are post radiation changes in theadjacent marrow spaces. No appreciable residual epidural extension onthis noncontrast exam. -------- FINAL REPORT -------- Dictated By: Leodan Acosta Dictated Date: 04/27/2025 08:17 ET Assigned Physician: Leodan Acosta Reviewed and Electronically Signed By: Leodan Acosta Signed Date: 04/27/2025 09:02 ET Workstation ID: [id number] Transcribed By: Self Edit Transcribed Date: 04/27/2025 08:17 ET us Natividad Dasilva MD IM MRI PROCEDURES Final Resul t * Pulmonary function testing: Carbon Monoxide Diffusing Capacity, Nitrogen Wash Out, Spirometry with Bronchodilator (03/04/2025 2:37 PM EDT) Impressions Elizabeth Clark MD - 03/04/2025 2:37 PM EDT Pulmonary function test interpretation. Spirometry done today reveals FEV1 of 2.37 which is 90% of the predicted value, FVC is 2.84 which is 78% of the predicted value, FEV1 to FVC ratio send 40% of the predicted value, there is no bronchodilator response. Flow-volume is consistent with restrictive pattern. Static lung volumes including total lung capacity is moderately reduced. Diffusion lung capacity was moderately reduced however mildly reduced after correction for alveolar volume. This study is consistent with moderate restrictive lung disease for which clinical correlation is advised. Susana Posada MD PFT ORDERABLES Final Result * (ABNORMAL) Lipid panel with reflex to direct LDL (01/07/2025 11:51 AM EDT) Cholesterol 193 0 - 200 mg/dL LAB CHEMISTRY METHOD 01/07/2025 4:18 PM [facility] Triglycerides 137 0 - 150 mg/dL LAB CHEMISTRY METHOD 01/07/2025 4:18 PM [facility] HDL 62 >=40 mg/dL LAB CHEMISTRY METHOD 01/07/2025 4:18 PM [facility] LDL Calculated 104(H) 0 - 100 mg/dL LAB CHEMISTRY METHOD 01/07/2025 4:18 PM [facility] Comment:Estimated LDL Calcul ated using equation: Total cholesterol - HDL cholesterol - (Triglycerides/5) VLDL Cholesterol Wes 27.4 mg/dL LAB CHEMISTRY METHOD 01/07/2025 4:18 PM [facility] Non HDL Chol. (LDL+VLDL) 131 <145 mg/dL LAB CHEMISTRY METHOD 01/07/2025 4:18 PM [facility] Chol/HDL Ratio 3.1 0.0 - 4.4 LAB CHEMISTRY METHOD 01/07/2025 4:18 PM EDT [facility] Blood Venous blood specimen / Unknown Venipuncture / Unknown 01/07/2025 11:51 AM EDT 01/07/2025 11:51 AM EDT French Pozo MD LAB BLOOD ORDERABLES Final Res ult [facility] [address] [place] [address], [place] [phone] * Colonoscopy (10/22/2023) Pathologist [facility] Colonoscopy completed Anatomical Region Laterality Modality Other Historical Provider HEALTH MAINTENANCE Final Result * Hepatitis C Screening (09/30/2023) Pathologist [facility] Hepatitis C Screening abstracted Historical Provider HEALTH MAINTENANCE Final Result * Depression Screening (06/09/2023) Pathologist [facility] Depression Screening abstracted Historical Provider HEALTH MAINTENANCE Final Result from Last 3 Months or Most Recently Relevant to Health Maintenance Insurance MEDICARE [facility] Care Teams Feller Machine Operator Relationship Specialty Start Date End Date Madelyn Eddy MD [address] [place] [address] PCP - General Internal Medicine 02/14/25
--- OUTSIDE RECORDS SUMMARY | 2025-05-17 11:53 | XMS_ITS ---
Author Name [facility] Organization Unknown Care Team Organization Name Specialty Phone Email Start Date End Da te [facility] 01/12/2025 [facility] Tripp Montano Primary Care 04/02/2022 01/12/2024
--- OUTSIDE RECORDS SUMMARY | 2025-05-17 11:53 | XMS_ITS | Clinical Summary ---
Author Organization [facility] Address [address] [facility] [address] [place] [address] Phone Care Team Providers Care Compensation Consultant Name Role Phone Tripp Castro Primary Care Provider [phone] Allergies Active Allergy Reactions Criticality Noted Date [...] Quayyam; Ritalin, Sertraline Hyperlipidemia 04/03/2006 05/16/2021 Immunizations Immunization Administration Dates Next Due Influenza Split High [...] Cancer Screening: Sigmoidoscopy 2000 Influenza Vaccine (#1) 2025 , 03/23/2020, 03/16/2019, Additional history exists Pneumococcal Vaccine: 50+ Years Completed 10/20/2020, 04/09/2017 Pneumococcal Vaccine: Peds (0 to 5 Years) and At-Risk Patients (6 to 49 Years) Discontinued 10/20/2020, 04/09/2017 Hepatitis B Vaccine Aged Out No longe r eligible based on patient's age to complete this topic Insurance [facility] Care Teams Compensation Consultant Relationship Specialty Start Date End Date Tripp Castro [address] [place] [id number] PCP - General 06/05/20
--- OUTSIDE RECORDS SUMMARY | 2025-05-17 11:53 | XMS_ITS ---
Author Organization [facility] Address [address] [place] [address] Phone Care Team Providers Care Dye House Worker Name Role Phone Madelyn Eddy MD Primary Care Provider [phone] Active Problems Problem Noted Date Diagnosed Date [...] low-cholesterol diet. Continue current treatment of ezetimibe. Current Treatment and Therapy Plans No current plan information found. Past Treatment and Therapy Plans No past plan information found. Current Radiation Episodes * Radiation Therapy: SpineOverview* First Treatment Date Latest Treatment Date Treatment Site Technique Goal Episode Provider 11/24/2024 12/08/2024 Spine Palliative Alisha Tinoco MD * Linked Problems Treatment Courses* Course 1 11/24/2024 - 12/08/2024 Treatment Sites Treatment Period Fraction Dose Fractions Total Dose T Spine 11/24/2024 - 12/08/2024 300 / 300 cGy 3 ,000 / 3,000 cGy
--- OUTSIDE RECORDS SUMMARY | 2025-05-17 11:53 | XMS_ITS ---
Author Organization [facility] Address [address] [place] [address] [place] [phone] Phone Care Team Providers Care Textile Engineer Name Role Phone Self-Referred, Patient Unavailable Unavailab Natividad Hicks MD, MPH Unavailable Nikki Webber DO Unavailable Medina Cornelius RN Unavailable [phone] Madelyn Eddy MD Primary Care Provider [phone] Active Problems Patient Care Coordination No te Formatting of this note migh t be different from the original. Pt prefers iv decadron as a premed Problem Noted Date Diagnosed Date Depression 12/14/2024 Prostate cancer 11/03/2024 Gastroesophageal reflux dise ase with esophagitis without hemorrhage 10/18/2020 Aortic aneurysm 07/18/2019 Overview (12/14/2024): ECHO 09/2022: 3.9 cm Infrarenal; MRI May, [...] assessment for a mildly enlarged infrarenal aorta. Essential hypertension 09/20/2017 Overview (12/14/2024): Renal (12/29/17): Seen for hypertension, tachycardia. 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 Current Treatment and Therapy Plans ACCESS AND FLUSH??(DFCI)* Plan Start Date:02/08/2025 Plan Provider:Natividad Dasilva MD, MPH Linked Problems Prostate cancer Treatment Medications No medications scheduled. DAROLUTAMIDE* Plan Start Date:11/10/2024 Plan Provider:Natividad Dasilva MD, MPH Linked Problems Prostate cancer Treatment Medications Current Day (Day 1 , Cycle 2 - Planned for 12/08/2024) Next Day (Day 1, Cycle 3 - Planned for 01/05/2025) darolutamide (NUBEQA) darolutamide (KHANH QA) 300 mg tablet darolutamide (NUBEQA) 300 mg tablet DOCETAXEL 75 MG/M2 EVERY 3 WEEKS* Plan Start Date:01/18/2025 Plan Provider:Natividad Dasilva MD, MPH Linked Problems Prostate cancer Treatment Medications DOCEtaxel (TAXOTERE) IVPB in 250 mL (Doses >85 m g to 199 mg) LEUPROLIDE ACETATE 3 MONTH (LUPRON DEPOT 3 MONTH)* Plan Start Date:04/12/2025 Plan Provider:Gianna Coburn PAJuliannaC Linked Problems Prostate cancer Treatment Medications leuprolide acetate (3 month) (LUPRON DEPOT 3 MONTH) Past Treatment and Therapy Plans No past plan information found.
--- OUTSIDE RECORDS SUMMARY | 2025-05-17 11:53 | XMS_ITS | Data Portability ---
Author Organization [place] - [facility], Allergy Address [address] [address] Care Team Providers Care Game Protector Name Role Phone ANA JAMES Primary Care Provider [phone] Assessment Encounter Date Assessment Date Assessment LastModified by Organization Details LastModified Time 04/07/2024 04/07/2024 Recommendations: Follow up with referring provider. Amplification, pending medical clearance and pt motivation. janelle Not available 04/07/2024 14:29:42 04/07/2024 04/07/2024 74-year-old [...] Follow-up in 6 months for cerumen removal. josh Not available 04/07/2024 15:24:07 10/08/2024 10/08/2024 74-year-old male presents for cerumen removal. Cerumen removed bilaterally. Follow-up in 6 months. josh Not available 10/08/2024 13:51:14 04/11/2025 04/11/2025 75-year-old male presents for cerumen removal. Cerumen removed bilaterally. Recommended extending cerumen from 6 months to 1 year which will be arranged. All questions were answered. josh Not available 04/11/2025 13:31:47 Plan of Treatment [...] Address Organization Details Recorded Time Hyperlipi demia 53304652 Active 2005 Lucia nicole [place] - [facility] 13:27:20 Attention deficit hyperacti vity disorder, predomina ntly inattenti ve type 45815387 Active 2007 Lucia nicole [facility] 13:27:20 Osteoarth ritis of joint of bilateral hands 21413479523 9109 Active 2014 Lucia nicole [facility] 13:27:20 Microscop ic hematuria 956212423 Active 2016 Lucia nicole [facility] 13:27:20 Hypertens jacob disorder 12625826 Active 2017 Lucia nicole [facility] 13:27:20 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 670484975 Active 2017 Coagulati on defects: Other hemorrhag ic disorder due to intrinsic circulati ng anticoagu lants, antibodie s, or inhibitor s; Note: Date Diagnosed : 03/01/2015 8:41 AM () Not Available [facility] 4 03:13:33 Essential hypertens ion 15987172 Active 2017 Essential (primary) hypertens ion; Note: Date Diagnosed : 07/03/2017 4:30 PM (I10) Not Available [facility] 4 03:13:34 Bleeding from nose 842570735 Active 2017 Epistaxis ; Note: Date Diagnosed : 07/03/2017 4:04 PM (R04.0) Not Available [facility] 4 03:13:33 Epistaxis Active 2017 Epistaxis ; Note: Date Diagnosed : 03/01/2015 8:41 AM () Not Available [facility] 4 03:13:33 Long-term current use of antiplate let drug 81669657919 4101 Active 2017 retirement (current) use of antithrom botics/an tiplatele ts; Note: Date Diagnosed : 12/13/2016 12:51 PM (Z79.02) Not Available [facility] 4 03:13:34 Frequent headache 078135580 Active 2017 Lucia nicole [place] - [facility] 5 13:27:20 Impacted cerumen in right ear 56441643991 52148 Active 2018 Impacted cerumen, right ear; Note: Date Diagnosed : 03/29/2019 3:02 PM (H61.21) Not Available [facility] 4 03:13:34 Aortic aneurysm 87691990 Active 2019 Lucia nicole [place] - [facility] 5 13:27:20 Gastro-es ophageal reflux disease with esophagit is 535931363 Active 2020 Lucia nicole [place] - [facility] 5 13:27:20 History of SARS-CoV- 2 09906407469 5954227 Active 2022 Lucia nicole [place] - [facility] 5 13:27:20 Dyspnea 693610191 Active 2022 Lucia nicole [place] - [facility] 5 13:27:20 Fatigue 16450094 Active 2022 Lucia nicole [place] - [facility] 5 13:27:20 Moderate asthma 008296991 Active 2023 Lucia nicole, [place] - [facility] 5 13:27:20 Obese class I 46685226448 4107 Active 2023 Lucia nicole, [place] - [facility] 5 13:27:20 Family history of malignant melanoma 904961946 Active 2023 Lucia nicole, [place] - [facility] 5 13:27:20 Impacted cerumen of bilateral ears 28825411331 95559 Active 2023 AYAH KAUR PA-C [address] [facility],[place] [address], [place], [address] , [place] - [facility] 4 14:19:47 Sensorine ural hearing loss of bilateral ears 221292905 Active 2023 YURIDIA SCANLON, AUD [address] [place] [address],[place] [address], [place], [address] , [place] - [facility] 4 14:23:59 Problem Notes None recorded. Procedures Surgical History Date Name Laterality Status Provider Name and Address Organization Details Recorded Time 5 Cerumen removal without microscope bilat completed AYAH KAUR PA-C [address] [facility],[address], [address], [place] - [facility] 04/11/2025 13:30:55 5 Cerumen removal without microscope bilat completed AYAH KAUR PA-C [address] [facility],[address], [address], [place] - [facility] 10/08/2024 13:51:03 4 Comp Audio with Tymps - 06047 & 13436 completed YURIDIA SCANLON, AUD [address] [facility],[address], [address], [place] - [facility] 04/07/2024 14:23:53 4 Cerumen removal without microscope bilat completed AYAH KAUR PA-C [address] [facility],[address], [address], [facility] - [facility] 04/07/2024 14:19:17 Imaging Results None recorded. Procedure Notes None recorded. Medical Equipment None Reported. Allergies Allergen ID Allergen Name Allergen Category Reaction Reaction Severity Criticality Documentation Date Start Date Code Code System Note Provider Name and Address Organization Details Recorded Time 490611 Lipitor medicatio n other Not available Not available 10/07/2023 63869 5 RxNorm React ion: unkno wn, unspe cifie d;; Not Available [facility] 4 01:15:52 614459 calamine medicatio n other rash Not available Not available Not available 10/07/20232008 70018 2 RxNorm Lucia nicole [facility] 5 13:27:06 670861 atorvasta tin calcium medicatio n other Not available Not available 04/11/20252005 26053 RxNorm Pain syndr ome Not Available [place] [employer] [facility] 5 13:08:20 168340 atorvasta tin medicatio n other Not available Not available 04/11/20252005 15967 RxNorm Lucia nicole [facility] 5 13:27:06 534458 Calamine Plain medicatio n itching rash swelling Not available Not available Not available [facility] 04/11/20252024 04108 3 RxNorm Not Available [place] [employer] 5 13:08:23 Medications [...] 24 hr 04/07 completed Medicati on ID: [id number] D uration Value: 30 Brand Name: methylph [...] mg tablet 2017 active Medicati on ID: [id number] D uration Value: 30 Brand Name: metoprol [...] and Address Organization Details Last Updated DateTime 10/08/2024 167.64 cm 31.6 kg/m2 04044.1 g Medina Newman [place] - [facility] 10/08/2024 12:58:27 Date Recorded Body height Body mass index (BMI) Body weight Provider Name and Address Organization Details Last Updated DateTime 04/07/2024 167.64 cm 31.6 kg/m2 08032.1 g Medina Newman [place] - [facility] 04/07/2024 13:49:49 Social History None recorded. 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 Family History Nothing Reported. Medical History Condition Response Anxiety Y Hypertension Y Depression Y Asthma Y Kidney Disease Immunizations Vaccine Type Date Status Note Provider Nam e and Address Organization Details Recorded Time Influenza, MDCK, quadrivalent, preservative 7 completed Lucia nicole [place] - [facility] 04/11/2025 13:27:26 zoster recombinant 2 completed Lucia nicole [place] - [facility] 04/11/2025 13:27:26 zoster recombinant 2 completed Lucia nicole [place] - [facility] 04/11/2025 13:27:26 Influenza, high-dose, quadrivalent, PF 3 completed Lucia nicole [place] - [facility] 04/11/2025 13:27:26 Influenza, high-dose, quadrivalent, PF 2 completed Lucia nicole, [place] - [facility] 04/11/2025 13:27:26 COVID-19, mRNA, LNP-S, PF, 100 mcg/0.5mL dose or 50 mcg/0.25mL dose 1 completed Lucia nicole, [place] - [facility] 04/11/2025 13:27:26 COVID-19, mRNA, LNP-S, PF, 100 mcg/0.5mL dose or 50 mcg/0.25mL dose 1 completed Lucia nicole, [place] - [facility] 04/11/2025 13:27:26 COVID-19, mRNA, LNP-S, PF, 30 mcg/0.3 mL dose 2 completed Lucia nicole, [place] - [facility] 04/11/2025 13:27:26 COVID-19, mRNA, LNP-S, PF, 30 mcg/0.3 mL dose 4 completed Lucia nicole, [place] - [facility] 04/11/2025 13:27:26 COVID-19, mRNA, LNP-S, PF, 30 mcg/0.3 mL dose 3 completed Lucia nicole, [place] - [facility] 04/11/2025 13:27:26 COVID-19, mRNA, LNP-S, PF, 30 mcg/0.3 mL dose 1 completed Lucia nicole, [place] - [facility] 04/11/2025 13:27:26 RSV, recombinant, protein subunit RSVpreF, adjuvant reconstituted, 0.5 mL, PF 4 completed Lucia nicole, [place] - [facility] 04/11/2025 13:27:26 pneumococcal polysaccharide PPV23 1 completed Lucia nicole, [place] - [facility] 04/11/2025 13:27:26 influenza, unspecified formulation 3 completed Lucia nicole, [place] - [facility] 04/11/2025 13:27:26 Tdap 8 completed Lucia nicole, [place] - [facility] 04/11/2025 13:27:26 Pneumococcal conjugate PCV 13 7 completed Lucia nicole, [place] - [facility] 04/11/2025 13:27:26 zoster live 5 completed Lucia nicole, [place] - [facility] 04/11/2025 13:27:26 Influenza, high-dose, trivalent, PF 8 completed Lucia nicole, [place] - [facility] 04/11/2025 13:27:26 Influenza, high-dose, trivalent, PF 9 completed Lucia nicole, [place] - [facility] 04/11/2025 13:27:26 Influenza, high-dose, trivalent, PF 0 completed Lucia nicole, [place] - [facility] 04/11/2025 13:27:26 Influenza, high-dose, trivalent, PF 1 completed Lucia nicole, [place] - [facility] 04/11/2025 13:27:26 Influenza, split virus, trivalent, preservative 2 completed Lucia nicole, [place] - [facility] 04/11/2025 13:27:26 Influenza, split virus, trivalent, preservative 4 completed Lucia nicole, [place] - [facility] 04/11/2025 13:27:26 Influenza, split virus, trivalent, preservative 0 completed Lucia nicole, [place] - [facility] 04/11/2025 13:27:26 Influenza, split virus, trivalent, preservative 5 completed Lucia nicole, [place] - [facility] 04/11/2025 13:27:26 Influenza, split virus, trivalent, preservative 8 completed Lucia nicole, [place] - [facility] 04/11/2025 13:27:26 Influenza, split virus, trivalent, preservative 4 completed Lucia nicole [place] [facility] 04/11/2025 13:27:26 Influenza, split virus, trivalent, preservative 6 completed Lucia nicole [place] - [facility] 04/11/2025 13:27:26 Influenza, split virus, trivalent, preservative 2 completed Lucia nicole [place] [facility] 04/11/2025 13:27:26 Td (adult), 2 Lf tetanus toxoid, preservative free, adsorbed 9 completed Lucia nicole [facility] 04/11/2025 13:27:26 Past Encounters Encounter ID Performer Location Encounter Start Date Encounter Closed Date Diagnosis/Indication Diagnosis SNOMED-CT Code Diagnosis ICD10 Code Diagnosis IMO Codes Diagnosis Note [id number] AYAH KAUR PA-C [facility] [address] [address] 04/07/2024 13:26:44 04/07/2024 14:57:35 Impacted cerumen of bilateral ears 1383235928 754532 H61.23 Sensorineu ral hearing loss of bilateral ears 562129008 H90.3 [id number] AJAY CORREA [facility] [address] [address] 04/07/2024 14:13:12 04/08/2024 14:11:12 Sensorineural hearing loss of bilateral ears 323654380 H90.3 Audiologic al evaluation results:Ri ght ear:Normal sloping to moderate sensorineu ral hearing loss with excellent word recognitio n.Left ear:Normal sloping to moderate sensorineu ral hearing loss with excellent word recognitio n.Tympanom etry:Right Ear:Type ALeft Ear:Type A [id number] AJAY CORREA [place] [address] [place] [address] [address] 07/02/2024 10:01:27 07/05/2024 08:04:01 Sensorineural hearing loss of bilateral ears 582526730 H90.3 [id number] AYAH KAUR PA-C [facility] [address] [place] [address] 10/08/2024 12:54:46 10/08/2024 13:14:35 Impacted cerumen of bilateral ears 4894184707 244117 H61.23 Sensorineu ral hearing loss of bilateral ears 497234678 H90.3 [id number] AYAH KAUR PA-C [facility] [address] [place] [address] 04/11/2025 13:07:33 04/11/2025 13:27:48 Impacted cerumen of bilateral ears 9913335659 829411 H61.23 Sensorineu ral hearing loss of bilateral ears 977572637 H90.3 Health Concerns Section Related Observation LastModified by Organization Detai ls LastModified Time None Recorded Concern Status LastModified by Organization Details LastModified Time None Recorded Advance Directives Directive None Recorded Payers Insurance Date Sequence Insurance Name Policy Number Policy Baker Covered Member ID Baker Member ID Guarantor Name 04/11/2025 2 [facility] 2 (MEDICARE SUPPLEMENT) Royce Clarke 04/11/2025 1 [place] [employer] Royce Clarke [id number] Royce Clarke 04/11/2025 2 [facility] [id number] Royce Clarke [id number] Royce Clarke Notes Date Note Type Note Provider Name and Address Organization Details Recorded Time 04/07/2024 text/html ROS as noted in the HPI 74-year-old male presents for cerumen removal. History of cerumen impaction and concerns for hearing loss. Has not been able to obtain a hearing test from outpatient field aide due to impaction. AYAH KAUR PA-C [address] [place] [address], [place], [address], [facility] - [facility] 04/07/2024 15:25:02 04/07/2024 text/html Audiological Evaluation HPIReported by PatientHearing LossFor hearing loss perceived, patient reportshearing loss in both ears (no differences noted between ears)but reportsgradual onset. AJAY CORREA [address] [facility],[address], [address], [place] - [facility] 04/07/2024 14:29:54 07/02/2024 text/html Pt is here today with spouse. Pt is a new user of hearing aids. Here today due to difficulty in background noise. He is not super frustrated but his spouse is becoming more concerned. Lifestyle: part of meetings, and clubs. Goes to tenriism, grocery store, and seminars. Tendsto avoid big groups. Discussed type, technology levels, and manufacturers of hearing aids. Type of phone: android If moving forward we will be ordering:[facility] [facility] [id number] [facility] [place] Hospit[facility]: 2MDomes: open largeOther: Paid today:Due at fitting 4614.00Total: AJAY CORREA [address] [facility],[address], [address], [place] - [facility] 07/02/2024 10:35:03 10/08/2024 text/html ROS as noted in the [facility] 74-year-old male presents for cerumen removal. No acute issues since his last visit. SANTHOSH ERNANDEZ MD [address] [place] [address],[address], [address], [place] - [facility] 10/08/2024 14:53:37 04/11/2025 text/html ROS as noted in the [facility] 75-year-old male presents for cerumen removal. No acute issues since his last visit. SIS NAVARRETE MD [address] [facility],[address], [address], [place] - [facility] 04/12/2025 07:37:50
--- OUTSIDE RECORDS SUMMARY | 2025-05-17 11:53 | XMS_ITS | Clinical Summary ---
Author Organization [facility] Address [address] [place] [address] Phone Care Team Providers Care Prints And Drawings Curator Name Role Phone Self-Referred, Patient Unavailable Unavailab Natividad Hicks MD, MPH Unavailable Nikki Webber DO Unavailable [phone] Medina Cornelius RN Unavailable [phone] Madelyn Eddy MD Primary Care Provider [phone] Allergies Active Allergy Reactions Criticality Noted Date Comments Atorvastatin Cramps,Myalgia,Other (See Comments),Pain Low 05/07/2006 Pain syndrome Other Reaction(s): PAIN SYNDROME Pain syndrome Lipitor Calamine Plain Itching,Rash,Rash wi th Blisters,Swelling High 12/14/2024 Medications darolutamide (NUBEQA) 300 mg tabletIndications: Prostate cancer Take 2 tablets (600 mg total) by mouth 2 (two) times a day. Follow instructions given by provider. 120 tablet 11 11/11/19 25 Active methylphenidate HCl (RITALIN) 10 MG tablet Take 10 mg by mouth 3 (three) times a day. Active sertraline (ZOLOFT) 100 MG tablet Take 150 mg by mouth daily. Active ezetimibe (ZETIA) 10 mg tablet Take 10 mg by mouth daily. Active dilTIAZem (TIAZAC) 240 MG 24 hr capsule Take 240 mg by mouth daily. Active losartan (COZAAR) 25 MG tablet Take 25 mg by mouth daily. Active therapeutic multivitamin tablet Take 1 tablet by mouth daily. Active aspirin 81 mg chewable tablet Take 81 mg by mouth daily. Active omeprazole (PRILOSEC) 20 mg TbEC Take 20 mg by mouth daily. Active cetirizine (ZYRTEC) 10 MG tablet Take 10 mg by mouth daily. Active rosuvastatin (CRESTOR) 5 MG tablet Take 5 mg by mouth daily. Active calcium carb/D3/magnesium/ zinc (CALCIUM CARB-D3-MAG ZEX13-YWVY ORAL) Take by mouth. Active ondansetron (ZOFRAN-ODT) 8 MG disintegrating tablet Take 1 tablet (8 mg total) by mouth every 8 (eight) hours as needed for nausea. 30 tablet 2 12/15/19 25 Active prochlorperazine (COMPAZINE) 10 MG tablet Take 1 tablet (10 mg total) by mouth every 6 (six) hours as needed (nausea). 30 tablet 3 12/15/19 25 Active gabapentin (NEURONTIN) 100 MG capsule Take 1 capsule (100 mg total) by mouth nightly at bedtime. 90 capsule 2 01/19/20 25 Active diphenhydrAMINE-li ykcmjwt-adue-brz-s imethicone (MAGIC MOUTHWASH-BLM) 41-187-842-40 mg/30mL suspension Swish and spit 10 mL 4 (four) times a day as needed (mouth sores). 237 mL 1 03/10/20 25 Active Active Problems Patient Care Coordination No te [...] as long as he continues to improve. Encounters Date Type Department Care Team Description 05/10/2025 Telephone VIRTUAL DEPARTMENT [address] [place] [address] Mariam Hinds, CampbellD Follow-up (Follow up call for Robel through [facility]/) 05/04/2025 Documentation Social Work Department, [facility] at [address] [address] Marie Flores 05/03/2025 3:30 PM EST Infusion Infusion Therapy Services [facility] at [address] [address] Natividad Dasilva MD, MPH Medina Cornelius, RN Prostate cancer (Primary Dx) 05/03/2025 2:30 PM EST Nurse Only [facility], [address] [address] Natividad Dasilva MD, MPH Tucker Patel RN 05/03/2025 2:30 PM EST Office Visit [facility], [address] [address] Gianna Coburn PA-C Prostate cancer (Primary Dx) 05/03/2025 Orders Only [facility], [address] [address] Gianna Coburn PA-C Prostate cancer (Primary Dx) 04/14/2025 Telephone [facility], [address] [place] [address] Preeti Boyce, BONNIE Symptom Management; Care Coordination 04/12/2025 12:30 PM EST Infusion Infusion Therapy Services [facility] at [address] [address] Natividad Dasilva MD, MPH Medina Cornelius, RN Prostate cancer (Primary Dx) 04/12/2025 11:30 AM EST Office Visit [facility], [facility] at [address] [address] Natividad Dasilva MD, MPH Prostate cancer (Primary Dx); Acute midline low back pain without sciatica; Osteoporosis, unspecified osteoporosis type, unspecified pathological fracture presence; Anemia, unspecified type; Pain in thoracic spine 03/22/2025 3:00 PM EDT Infusion Infusion Therapy Services [facility] at [address] [address] Natividad Dasilva MD, MPH Medina Cornelius, BONNIE Prostate cancer (Primary Dx) 03/22/2025 2:00 PM EDT Office Visit [facility], [facility] at [address] [address] Gianna Coburn PA-C Prostate cancer (Primary Dx) 03/14/2025 Telephone [facility], [facility] [address] [facility], [address] [place] [address] Preeti Boyce RN Symptom Management; Care Coordination 03/10/2025 Orders Only [facility], [address], [address] [place] [address] Gianna Coburn PA-C 03/01/2025 11:00 AM EDT Infusion Infusion Therapy Services [facility] at [address] [address] Natividad Dasilva MD, MPH Medina Cornelius, BONNIE Prostate cancer (Primary Dx) 03/01/2025 10:00 AM EDT Office Visit [facility], [facility] at [address] [address] Gianna Coburn PA-C Prostate cancer (Primary Dx) 02/21/2025 Orders Only [facility], [facility] [address] [facility], [address] [place] [address] Natividad Dasilva MD, MPH Prostate cancer (Primary Dx) 02/18/2025 Telephone [facility], [facility] [address] [facility], [address] [place] [address] Preeti Boyce, BONNIE Care Coordination; Symptom Management from Last 3 Months Social History Tobacco Use Types Packs/Day Years Used Date Smoking Tobacco: Never Assessed Child or Family Care Answer Date Record ed Do you have problems with on e of the following making it difficult for you to work, study, or receive health care? No 10/31/2024 Education Answer Date Recorded Are you interested in more education? Not on yehuda e 10/25/2024 Are you concerned about learning? Not on file 10/25/2024 No 10/25/2024 No 10/25/2024 Food Answer Date Recorded Within the past 6 months we worried whether our food would run out before we got money to buy more. Sometimes True 025 Within the past 6 months the food we bought just didn't last and we didn't have enough money to get more. Sometimes True 12/2024 Residential Stability Answer Date Recor ded What is your housing situation today? I have belen sing 10/31/2024 How many times have you move d in the past 12 months? Zero (I did not move) 10/31/2024 Paying for Meds Answer Date Recorded Do you have trouble paying for medicines? No 10/31/2024 Paying Utility Bills Answer Date Record ed Do you have trouble paying your heating or elect ricity bill? Yes 10/31/2024 Transportation Answer Date Recorded Has the lack of transportati on kept you from medical appointments or from getting medications? No 10/31/2024 Digital Access Answer Date Recorded No 10/25/2024 No 10/25/2024 Reliable internet access at home? Not on file 10/25/2024 Device with a working camera? Not on file Intimate Partner Violence Answer Date R ecorded Are you denied basic needs s uch as food, clothing, or medical care? No 01/18/2025 In the past 12 months have y ou been in a relationship with a person who hurts, threatens, or tries to control you? No 01/18/2025 Are you denied basic needs s uch as food, clothing, or medical care? No 01/18/2025 In the past 12 months have y ou been in a relationship with a person who hurts, threatens, or tries to control you? No 01/18/2025 Sex and Gender Information Value Date Recorded Sex Assigned at Not on file Legal Sex Male 4:20 PM EDT Gender Identity Not on file Sexual Orientation Not on file Last Filed Vital Signs Vital Sign Reading Time Taken Comments Blood Pressure 110/56 05/03/2025 2:38 PM EST Pulse 103 05/03/2025 2:38 PM EST Temperature 36.6 C (97.8 F) 05/03/2025 2:38 PM EST Respiratory Rate 16 05/03/2025 2:38 PM EST Oxygen Saturation 94% 05/03/2025 2:38 PM EST Inhaled Oxygen Concentration - - Weight 89.8 kg (197 lb 15.6 oz) 05/03/2025 2:38 PM EST Height 164.4 cm (5' 4.72 ) 01/18/2025 1:07 PM ED T Body Mass Index 33.23 01/18/2025 1:07 PM EDT Plan of Treatment Upcoming Encounters Date Type Department Care Team (Late st Contact Info) Description 04/12/2025 Procedure Pass [address] [address] 04/12/2025 Procedure Pass [address] [address] 07/05/2025 7:30 AM EST Blood Draw Laboratory Services, [facility] at [address] [address] Natividad Dasilva MD, MPH [address] [place] [address] [email or web address] 07/05/2025 8:15 AM EST Appointment [facility], Nuclear Medicine [address] [place] [address] Natividad Dasilva MD, MPH [address] [place] [phone] [email or web address] 07/05/2025 10:20 AM EST Appointment [facility] - [address] [address] Natividad Dasilva MD, MPH [address] [place] [phone] [email or web address] 07/05/2025 11:15 AM EST Appointment [facility], Nuclear Medicine [address] [place] [address] Natividad Dasilva MD, MPH [address] [place] [phone] [email or web address] 07/05/2025 2:30 PM EST Office Visit [facility] at [address] [address] Natividad Dasilva MD, MPH [address] [place] [address] [email or web address] 07/05/2025 3:00 PM EST Office Visit [facility], [facility] at [address] [address] Gianna Coburn PA-C [address] [place] [address] [place] [address] 07/05/2025 3:00 PM EST Nurse Only [facility], [facility] at [address] [address] Natividad Dasilva MD, MPH [address] [place] [address] [email or web address] 07/05/2025 3:45 PM EST Infusion Infusion Therapy Services [facility] at [address] [address] Natividad Dasilva MD, MPH [address] [place] [phone] [email or web address] Health Maintenance Due Date Last Done Comments DEPRESSION SCREENING 1963 SMOKING Hx and SMOKELESS TOBACCO SCREENING 1964 HEPATITIS C SCREENING 1969 COLOGUARD 1996 COLONOSCOPY 1996 COLORECTAL CANCER SCREENING 1996 FIT TEST 1996 FOBT 1996 SIGMOIDOSCOPY 1996 VIRTUAL COLONOSCOPY 1996 COVID-19 VACCINE ( season) 2025 02/21/2025, 01/27/2024, 01/27/2024, Additional history exists BLOOD PRESSURE 11/01/2025 05/03/2025 LIPID PANEL 01/07/2026 01/07/2025, 11/19/2023 CREATININE LEVEL 05/03/2026 05/03/2025, 01/2025, 04/12/2025, Additional history exists POTASSIUM LEVEL 05/03/2026 05/03/2025, 03/26, 03/22/2025, Additional history exists Adult Td,Tdap Booster 03/16/2029 03/16/2019, 008 PNEUMOCOCCAL VACCINES (50+ years) Completed 10/20/2020, 04/09/2017 ZOSTER VACCINES Completed 11/22/2021, 04/0 12/2021, 12/16/2014 RSV VACCINE Completed 05/31/2023 INFLUENZA VACCINE Completed 02/21/2025, , 03/09/2023, Additional history exists HEPATITIS A VACCINES Aged Out No long er eligible based on patient's age to complete this topic HIB VACCINES Aged Out No longer eligi ble based on patient's age to complete this topic MENINGOCOCCAL VACCINES (ACWY) Aged Out No longer eligible based on patient's age to complete this topic MENINGOCOCCAL VACCINES (B) Aged Out N o longer eligible based on patient's age to complete this topic Medical Devices Not on file Procedures Procedure Name Priority Date/Time Associated Diagnosis Comments COMPREHENSIVE METABOLIC PANEL (CMP) Routine 05/03/2025 2:18 PM EST Prostate cancer CBC AND DIFFERENTIAL Routine 05/03/2025 1:18 PM EST Prostate cancer TESTOSTERONE, TOTAL Routine 05/03/2025 1 :18 PM EST Prostate cancer PSA DIAGNOSTIC (MONITORING) Routine 05/03/2025 1:18 PM EST Prostate cancer COMPREHENSIVE METABOLIC PANEL (CMP) Routine 05/03/2025 1:18 PM EST Prostate cancer CBC AND DIFFERENTIAL Routine 05/03/2025 1:18 PM EST Prostate cancer CBC AND DIFFERENTIAL Routine 04/12/2025 11:10 AM EST Prostate cancer TESTOSTERONE, TOTAL Routine 04/12/2025 1 1:10 AM EST Prostate cancer PSA DIAGNOSTIC (MONITORING) Routine 04/12/2025 11:10 AM EST Prostate cancer COMPREHENSIVE METABOLIC PANEL (CMP) Routine 04/12/2025 11:10 AM EST Prostate cancer CBC AND DIFFERENTIAL Routine 04/12/2025 11:10 AM EST Prostate cancer TESTOSTERONE, TOTAL Routine 03/22/2025 1 :11 PM EDT Prostate cancer PSA DIAGNOSTIC (MONITORING) Routine 03/22/2025 1:11 PM EDT Prostate cancer COMPREHENSIVE METABOLIC PANEL (CMP) Routine 03/22/2025 1:11 PM EDT Prostate cancer HC BLOOD COUNT COMPLETE AUTO&AUTO DIFRNTL WBC Routine 03/22/2025 1:11 PM EDT Prostate cancer X-LABEL/STUDY RESEARCH Routine 9:55 AM EDT Prostate cancer TESTOSTERONE, TOTAL Routine 03/01/2025 9 :55 AM EDT Prostate cancer PSA DIAGNOSTIC (MONITORING) Routine 03/01/2025 9:55 AM EDT Prostate cancer COMPREHENSIVE METABOLIC PANEL (CMP) Routine 03/01/2025 9:55 AM EDT Prostate cancer HC BLOOD COUNT COMPLETE AUTO&AUTO DIFRNTL WBC Routine 03/01/2025 9:55 AM EDT Prostate cancer from Last 3 Months Results * (ABNORMAL) Comprehensive Metabolic Panel (CMP) (05/03/2025 2:18 PM EST) Only the most recent of5 resultswithin the time period is included. Sodium 142 136 - 145 mmol/L 05/03/2025 2:55 PM EST [facility] Potassium 4.0 3.4 - 5.1 mmol/L 05/03/2025 2:55 PM EST [facility] Chloride 109(H) 98 - 107 mmol/L 05/03/2025 2:55 PM EST [facility] CO2 21 20 - 31 mmol/L 05/03/2025 2:55 PM EST [facility] BUN 17 6 - 23 mg/dL 05/03/2025 2:55 PM EST [facility] Creatinine 0.95 0.60 - 1.30 mg/dL 05/03/2025 2:55 PM EST [facility] Glucose 94 70 - 99 mg/dL 05/03/2025 2:55 PM EST [facility] Calcium 8.4(L) 8.5 - 10.5 mg/dL 05/03/2025 2:55 PM EST [facility] AST 26 <41 U/L 05/03/2025 2:55 PM EST [facility] [place] ALT 29 <42 U/L 05/03/2025 2:55 PM EST [facility] Alkaline Phosphatase 103 40 - 130 U/L 05/03/2025 2:55 PM EST [facility] [place] Bilirubin, Total 0.2 0.0 - 1.2 mg/dL 05/03/2025 2:55 PM EST [facility] Total Protein 6.9 6.4 - 8.3 g/dL 05/03/2025 2:55 PM EST [facility] Albumin 3.8 3.5 - 5.2 g/dL 05/03/2025 2:55 PM EST [facility] Globulin 3.1 1.9 - 4.1 g/dL 05/03/2025 2:55 PM EST [facility] [place] eGFR 84 >59 mL/min/1.7 3m2 05/03/2025 2:55 PM EST [facility] Comment:Estimated glomerular filtration rate calculated using the CKD-EPI refit equation. Anion Gap 12 3 - 17 mmol/L 05/03/2025 2:55 PM EST [facility] Blood (Blood) Catheter/Line / Unknown 05/03/2025 2:18 PM EST 05/03/2025 2:21 PM EST us Gianna Guillenl PA-C LAB BLOOD BKR ORDERABLES Fi nal Result [facility] [id number] [place] [address], [facility] [phone] * Prostate Specific Antigen (PSA), Monitoring (05/03/2025 1:18 PM EST) Only the most recent of4 resultswithin the time period is included. [facility] PSA Monitoring <0.02 ng/mL 05/03/2025 2:01 PM EST [facility] Comment:Post radical prostat ectomy results should be <0.1 ng/mL. Post therapy for other types of treatment should be <1.0 ng/mL. Blood (Blood) Catheter/Line / Unknown 05/03/2025 1:18 PM EST 05/03/2025 1:24 PM EST [facility] - 05/03/2025 2:01 PM EST Test performed by Wing electrochemiluminescent immunoassay (ECLIA). Results obtained by assays using different manufacturers or methods may not be comparable and cannot be used interchangeably for patient monitoring. Gianna Coburn PA-C LAB BLOOD BKR ORDERABLES Fi nal Result [facility] [address] [place] [address], [facility] [phone] * (ABNORMAL) CBC and Differential (05/03/2025 1:18 PM EST) Only the most recent of2 resultswithin the time period is included. [facility] WBC 5.49 4.00 - 11.00 K/uL 05/03/2025 1:28 PM EST [facility] RBC 3.35(L) 4.50 - 5.90 M/uL 05/03/2025 1:28 PM EST [facility] Hemoglobin 11.2(L) 13.5 - 17.5 g/dL 05/03/2025 1:28 PM EST [facility] Hematocrit 33.3(L) 41.0 - 53.0 % 05/03/2025 1:28 PM EST [facility] MCV 99.4 80.0 - 100.0 fL 05/03/2025 1:28 PM EST [facility] MCH 33.4(H) 27.0 - 31.0 pg 05/03/2025 1:28 PM EST [facility] MCHC 33.6 32.0 - 36.0 g/dL 05/03/2025 1:28 PM EST [facility] MPV 9.7 8.4 - 12.0 fL 05/03/2025 1:28 PM EST [facility] RDW-CV 14.5 11.5 - 14.5 % 05/03/2025 1:28 PM EST [facility] PLT 215 150 - 450 K/uL 05/03/2025 1:28 PM EST [facility] Neutrophils 74.1 % 05/03/2025 1:28 PM EST [facility] Lymphocytes 11.7 % 05/03/2025 1:28 PM EST [facility] Monocytes 12.6 % 05/03/2025 1:28 PM EST [facility] Eosinophils 0.5 % 05/03/2025 1:28 PM EST [facility] Basophils 0.7 % 05/03/2025 1:28 PM EST [facility] Imm Grans 0.4 % 05/03/2025 1:28 PM EST [facility] NRBC 0.0 <=0.0 /100 WBCs 05/03/2025 1:28 PM EST [facility] Absolute Neutrophils 4.07 1.92 - 7.60 K/uL 05/03/2025 1:28 PM EST [facility] Absolute Lymphocytes 0.64(L) 0.72 - 4.10 K/uL 05/03/2025 1:28 PM EST [facility] Absolute Monocytes 0.69 0.16 - 1.10 K/uL 05/03/2025 1:28 PM EST [facility] Absolute Eosinophils 0.03 0.00 - 0.50 K/uL 05/03/2025 1:28 PM EST [facility] Absolute Basophils 0.04 0.00 - 0.15 K/uL 05/03/2025 1:28 PM EST [facility] Absolute Imm Grans 0.02 0.00 - 0.09 K/uL 05/03/2025 1:28 PM EST [facility] Absolute NRBC 0.00 <=0.00 K cells/uL 05/03/2025 1:28 PM EST [facility] Absolute Neutrophils 4.07 1.92 - 7.60 K/uL 05/03/2025 1:28 PM EST [facility] Diff Type Auto 05/03/2025 1:28 PM EST [facility] Blood (Blood) Catheter/Line / Unknown 05/03/2025 1:18 PM EST 05/03/2025 1:24 PM EST Gianna Rivero Nuspl PA-C LAB BLOOD BKR ORDERABLES Fi nal Result Performing Organization Address City/[facility]/ZIP Co de Phone Number [facility] [address] [address], [facility] [phone] * (ABNORMAL) Testosterone, Total (05/03/2025 1:18 PM EST) Only the most recent of4 resultswithin the time period is included. Testosterone <3(L) 193 - 740 ng/dL 05/03/2025 2:00 PM EST [facility] Blood (Blood) Catheter/Line / Unknown 05/03/2025 1:18 PM EST 05/03/2025 1:24 PM EST Narrative [facility] - 05/03/2025 2:00 PM EST Test performed by Wing electrochemiluminescent immunoassay (ECLIA). Gianna Rivero Nuspl PA-C LAB BLOOD BKR ORDERABLES Fi nal Result Performing Organization Address City/[facility]/ZIP Co de Phone Number [facility] [address] [address], [facility] [phone] * (ABNORMAL) CBC and differential (03/22/2025 1:11 PM EDT) Only the most recent of2 resultswithin the time period is included. WBC 4.86 4.00 - 10.00 K/uL [facility] RBC 3.27(L) 4.50 - 6.40 M/uL [facility] HGB 10.7(L) 13.5 - 18.0 g/dL [facility] HCT 32.1(L) 40.0 - 54.0 % [facility] PLT 234 150 - 450 K/uL [facility] MCV 98.2 80.0 - 100.0 fL [facility] MCH 32.7(H) 27.0 - 32.0 pg [facility] MCHC 33.3 32.0 - 36.0 g/dL [facility] RDW 13.9 11.5 - 14.5 % [facility] MPV 9.2 8.4 - 12.0 fL [facility] NRBC 0.00 0.00 /100 WBCs [facility] ABSOLUTE NRBC 0.00 0 K/uL [facility] DIFF METHOD Auto [facility] NEUTS 76.4(H) 48.0 - 76.0 % [facility] LYMPHS 10.7(L) 18.0 - 41.0 % [facility] MONOS 10.7 4.0 - 11.0 % [facility] EOS 1.6 0.0 - 5.0 % [facility] BASOS 0.4 0.00 - 1.50 % [facility] % IMMATURE GRANS 0.2 0.00 - 1.00 % [facility] ABSOLUTE NEUTS 3.71 1.92 - 7.60 K/uL [facility] ABSOLUTE LYMPHS 0.52(L) 0.72 - 4.10 K/uL [facility] ABSOLUTE MONOS 0.52 0.16 - 1.10 K/uL [facility] ABSOLUTE EOS 0.08 0.00 - 0.50 K/uL [facility] ABSOLUTE BASOS 0.02 0.00 - 0.15 K/uL [facility] ABS IMMATURE GRANS 0.01 0.00 - 0.10 K/uL [facility] Blood 03/22/2025 1:11 PM EDT 03/22/2025 1:15 PM EDT us Natividad Dasilva MD, MPH LAB BLOOD BKR O RDERABLES Final Result Performing Organization Address [facility]/ZIP Co de Phone Number [address] * X-Label/study (03/01/2025 9:55 AM EDT) [facility] EXTRA TUBES NEEDED FOR RESEARCH STUDY [facility] Resulting Agency [facility] Blood 03/01/2025 9:55 AM EDT 03/01/2025 10:09 AM EDT us Natividad Dasilva MD, MPH LAB BLOOD ORDER JOSESITO Final Result Performing Organization Address City/[facility] Co de Phone Number [address] from Last 3 Months Insurance MEDICARE PART A & B [employer] MEDEX SUPPLEMENT MEDICARE PART A & B [employer] MEDEX SUPPLEMENT MEDICARE PART A & B [employer] MEDEX SUPPLEMENT MEDICARE PART A & B [employer] MEDEX SUPPLEMENT MEDICARE PART A & B [employer] MEDEX SUPPLEMENT MEDICARE PART A & B [employer] MEDEX SUPPLEMENT Care Teams Prints And Drawings Curator Relationship Specialty Start Date End Date Madelyn Eddy MD [address] [place] [phone] PCP - General Internal Medicine 05/03/25 Self-Referred, Patient 10/25/24 Natividad Dasilva MD, MPH [address] [place] [id number] [email or web address] Medical Oncology 10/25/24 Nikki Webber DO [address] [place] [id number] Primary Oncologist Internal Medicine 11/03/24 Medina Cornelius, RN [address] [place] [address] [email or web address] Primary Infusion Nurse 01/18/25 Additional Source Comments The information contained in this document represents components of the legal health record. It is not the complete legal health record.[facility]
== END 2025-05-17 11:02 | disposition home or self-care (01) ==
LOC: HO.HKAS 10:34
PROVIDERS: PCP Internal Medicine; Visit Provider Internal Medicine Nephrology
DX: N20.0 Calculus of kidney (principal); I10 Essential (primary) hypertension
CPT/HCPCS: 99214

== ENCOUNTER → 2025-05-17 10:34 | Outpatient (BNVA) | payer MEDICARE, SELFPAY | PROVIDERS: PCP Internal Medicine; Visit Provider Internal Medicine Nephrology | DX: I10 Essential (primary) hypertension (principal); N20.0 Calculus of kidney | CPT/HCPCS: 99212 ==